=== PATIENT | male | born 1980 | race Caucasian/White ===

== ENCOUNTER 2020-06-10 07:58 | Outpatient (RCR) | payer BC, SELFPAY | END 2020-10-19 16:22 | disposition home or self-care (01) | LOC: HO.WCC 07:58 | PROVIDERS: PCP Nurse Practitioner Family; Visit Provider Surgery | DX: L02.31 Cutaneous abscess of buttock (principal) | CPT/HCPCS: 10060; 10061; 17250; 87071; 87205; 99212; 99213 ==

== ENCOUNTER → 2022-08-17 10:28 | Outpatient (BNVA) | payer BC, SELFPAY | PROVIDERS: PCP Nurse Practitioner Family; Visit Provider Urology | DX: Z13.89 Encounter for screening for other disorder (principal) ==

== ENCOUNTER → 2023-02-15 14:20 | Outpatient (BNVA) | payer BC, SELFPAY | PROVIDERS: Visit Provider Urology ==

== ENCOUNTER 2023-02-16 09:28 | Outpatient (AMB) | payer BC, SELFPAY ==
--- NOTE | 2023-02-16 09:54 | MHC.OFFVIS ---
Intake Intake Visit Reasons: 3m seman analysis Intake Note: New patient is present for Semen Analysis Antibiotic Allergy: None Blood Thinner: None Allergies No Known Allergies Allergy (Verified 08/17/22 10:53) Medication List - Last Reconciled 02/16/23 by Umesh Yu MD albuterol sulfate 90 mcg/actuation 2 puffs inhalation Q6H PRN 30 days hydrochlorothiazide 25 mg PO DAILY 90 days lisinopril 10 mg PO DAILY 90 days metformin 500 mg PO BID modafinil 200 mg PO DAILY 30 days Pregnyl (chorionic gonadotropin, human) 1,000 units IM 3XW 10 weeks NS propranolol 20 mg PO DAILY 90 days tadalafil 20 mg PO ONCE PRN 30 days testosterone cypionate (Depo-Testosterone) 100 mg (0.5 mL) subcut QWEEK 4 weeks HPI HPI Comments History of Present Illness Details Kingsley is a pleasant male. He is a patient of Dr. Riddle. 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 For 1st limited testosterone 100 mg weekly - age 37 Had additional hCG support 500 units TIW This time he would like to obtain medications through traditional distribution Normal testicular volume on exam Prescription for 100 mg testosterone provided HCG prescription provided There have been shortages of HCG and issues with supply These were discussed Erectile difficulty Response to 20 mg tadalafil on demand Prescription provided [facility] Medical History Shift work sleep disorder Social History Housing: House Patient Tobacco Use Status: Never used Tobacco e-Cigarette/Vaping Use: Never Used Second Hand Smoke Exposure: No service: No Current occupational status: employed Current occupation: [employer] Current occupational exposures/hazards: Yes Cognitive needs: No Hearing needs: No Vision needs: No Review of Systems Const Denies chills and Denies fever(s) Card Reports no additional complaints and Denies syncope Resp Denies cough GI Denies abdominal pain and Denies heartburn Reports as per HPI and Denies change in libido Neuro Denies syncope Psych Denies change in libido Endo Denies change in libido Physical Exam Const General: cooperative, healthy appearing, comfortable and no acute distress Orientation/consciousness: patient oriented x3 HEENT Face and sinus: Yes normal facial exam Mouth: moist mucous membranes Neck Neck: Yes normal visual inspection, Yes full ROM and Yes trachea midline Chest Chest palpation & inspection: normal inspection of the chest Resp Effort & Inspection: normal respiratory effort, able to speak in complete sentences and no respiratory distress GI Inspection: Yes normal to inspection Back/Spine/Pelvis Cervical Spine: normal cervical lordosis Thoracic/Lumbar Spine: thoracic and lumbar spine normal to inspection Skin General skin exam: no rashes or lesions noted Neuro General: patient oriented x3, gait normal, tone normal and moves all extremities Extrem General: Yes normal to inspection and Yes capillary refill normal Assessment & Plan Assessment & Plan (1) Hypogonadism in male: Code(s): E29.1 - Testicular hypofunction (2) Erectile dysfunction: Code(s): N52.9 - Male erectile dysfunction, unspecified Qualifiers: Erectile dysfunction type: vasculogenic (3) 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 No major barriers to patient understanding were identified. An opportunity to ask questions regarding the treatment plan was provided. All questions were answered. The patient expressed understanding and agreement with the above treatment plan. The patient is aware they should contact our office by phone for worsening of their current condition or the appearance of new urologic symptoms. Compliance is encouraged with any medications and followup testing that is ordered. It is a privilege to participate in the urologic care of your patient. If you have any questions or concerns regarding treatment for the above conditions, or other urologic issues, please do not hesitate to contact me. The office telephone contact is [phone]. This note is constructed using voice recognition software. While every effort has been made to ensure accuracy district plant superintendent errors may have been included. 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
== END 2023-02-16 10:13 | disposition home or self-care (01) ==
PROVIDERS: PCP Nurse Practitioner Family; Visit Provider Urology
DX: E29.1 Testicular hypofunction (principal); N52.9 Male erectile dysfunction, unspecified; N46.8 Other male infertility; T50.905A Adverse effect of unspecified drugs, medicaments and biological substances, initial encounter
CPT/HCPCS: 99213

== ENCOUNTER → 2023-02-16 09:28 | Outpatient (BNVA) | payer BC, SELFPAY | PROVIDERS: PCP Nurse Practitioner Family; Visit Provider Urology ==

== ENCOUNTER 2023-05-30 11:04 | Outpatient (AMB) | payer BC, SELFPAY ==
--- NOTE | 2023-05-30 11:36 | A.OFFVIS_ITS ---
Intake Intake Visit Reasons: 3M Semen Analysis (Pt will bring sample) Allergies No Known Allergies Allergy (Verified 08/17/22 10:53) Medication List - Last Reconciled 06/13/23 by Umesh Yu MD albuterol sulfate 90 mcg/actuation 2 puffs inhalation Q6H PRN 30 days hydrochlorothiazide 25 mg PO DAILY 90 days lisinopril 10 mg PO DAILY 90 days metformin 500 mg PO BID modafinil 200 mg PO DAILY 30 days Pregnyl (chorionic gonadotropin, human) 1,500 units IM 3XW 12 weeks NS propranolol 20 mg PO DAILY 90 days tadalafil 20 mg PO ONCE PRN 30 days testosterone cypionate (Depo-Testosterone) 100 mg (0.5 mL) subcut QWEEK 4 weeks HPI HPI Comments History of Present Illness Details Kingsley is a pleasant male. He is a patient of Dr. Riddle. 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 For 1st limited testosterone 100 mg weekly - age 37 Had additional hCG support 500 units TIW This time he would like to obtain medications through traditional distribution Normal testicular volume on exam Prescription for 100 mg testosterone provided HCG prescription provided There have been shortages of HCG and issues with supply These were discussed Erectile difficulty Response to 20 mg tadalafil on demand Prescription provided [facility] Medical History Shift work sleep disorder Social History Housing: House Patient Tobacco Use Status: Never used Tobacco e-Cigarette/Vaping Use: Never Used Second Hand Smoke Exposure: No service: No Current occupational status: employed Current occupation: [employer] Current occupational exposures/hazards: Yes Cognitive needs: No Hearing needs: No Vision needs: No Review of Systems Const Denies chills and Denies fever(s) Card Reports no additional complaints and Denies syncope Resp Denies cough GI Denies abdominal pain and Denies heartburn Reports as per HPI and Denies change in libido Neuro Denies syncope Psych Denies change in libido Endo Denies change in libido Physical Exam Const General: cooperative, healthy appearing, comfortable and no acute distress Orientation/consciousness: patient oriented x3 HEENT Face and sinus: Yes normal facial exam Mouth: moist mucous membranes Neck Neck: Yes normal visual inspection, Yes full ROM and Yes trachea midline Chest Chest palpation & inspection: normal inspection of the chest Resp Effort & Inspection: normal respiratory effort, able to speak in complete sentences and no respiratory distress GI Inspection: Yes normal to inspection Back/Spine/Pelvis Cervical Spine: normal cervical lordosis Thoracic/Lumbar Spine: thoracic and lumbar spine normal to inspection Skin General skin exam: no rashes or lesions noted Neuro General: patient oriented x3, gait normal, tone normal and moves all extremities Extrem General: Yes normal to inspection and Yes capillary refill normal Assessment & Plan Assessment & Plan (1) 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 No major barriers to patient understanding were identified. An opportunity to ask questions regarding the treatment plan was provided. All questions were answered. The patient expressed understanding and agreement with the above treatment plan. The patient is aware they should contact our office by phone for worsening of their current condition or the appearance of new urologic symptoms. Compliance is encouraged with any medications and followup testing that is ordered. It is a privilege to participate in the urologic care of your patient. If you have any questions or concerns regarding treatment for the above conditions, or other urologic issues, please do not hesitate to contact me. The office telephone contact is [phone]. This note is constructed using voice recognition software. While every effort has been made to ensure accuracy tooling engineering tech errors may have been included. 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
== END 2023-05-30 12:02 | disposition home or self-care (01) ==
PROVIDERS: PCP Nurse Practitioner Family; Visit Provider Urology
DX: N46.8 Other male infertility (principal); T50.905A Adverse effect of unspecified drugs, medicaments and biological substances, initial encounter; E29.1 Testicular hypofunction
CPT/HCPCS: 99214

== ENCOUNTER → 2023-05-30 11:04 | Outpatient (BNVA) | payer BC, SELFPAY | PROVIDERS: PCP Nurse Practitioner Family; Visit Provider Urology ==

== ENCOUNTER 2023-11-30 12:11 | Outpatient (AMB) | payer BC, SELFPAY ==
--- NOTE | 2023-11-30 11:13 | MHC.OFFVIS ---
Intake Visit Reasons: 6m follow up Allergies No Known Allergies Allergy (Verified 08/17/22 10:53) PFSH Medical History Shift work sleep disorder Social History Housing: House Patient Tobacco Use Status: Never used Tobacco e-Cigarette/Vaping Use: Never Used Second Hand Smoke Exposure: No service: No Current occupational status: employed Current occupation: [employer] Current occupational exposures/hazards: Yes Cognitive needs: No Hearing needs: No Vision needs: No Coding
--- NOTE | 2023-11-30 12:11 | A.OFFVIS_ITS ---
Intake Visit Reasons: 6m follow up Allergies No Known Allergies Allergy (Verified 08/17/22 10:53) HPI Comments Details: Kingsley is a pleasant male. He is a patient of Dr. Riddle. Seen for the following urologic conditions - male infertility - erectile difficulty Telemedicine Evaluation 15 min Consultation XM Radio Pablo Video Has seen Dr. Carter at [facility] At this point is continuing testosterone to the end of summer Has been on HCG 500 units t.i.w. 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 For 1st limited testosterone 100 mg weekly - age 37 Had additional hCG support 500 units TIW This time he would like to obtain medications through traditional distribution Normal testicular volume on exam Prescription for 100 mg testosterone provided HCG prescription provided There have been shortages of HCG and issues with supply These were discussed Erectile difficulty Response to 20 mg tadalafil on demand Prescription provided [facility] Medical History Shift work sleep disorder Social History Housing: House Patient Tobacco Use Status: Never used Tobacco e-Cigarette/Vaping Use: Never Used Second Hand Smoke Exposure: No service: No Current occupational status: employed Current occupation: [employer] Current occupational exposures/hazards: Yes Cognitive needs: No Hearing needs: No Vision needs: No Review of Systems Const All systems reviewed & are unremarkable except as noted in HPI and below Reports no additional complaints Resp Reports no additional complaints GI Reports no additional complaints Reports as per HPI Musc Reports no additional complaints Physical Exam Telemedicine evaluation Appropriate responses Regular breathing rate and rhythm HEENT Head: Yes normal to inspection Ears: hearing grossly normal bilaterally Eyes General: appearance normal, both eyes and all related structures Neck Neck: Yes normal visual inspection Chest Chest palpation & inspection: normal inspection of the chest Resp Effort & Inspection: normal respiratory effort and able to speak in complete sentences Telehealth Telehealth Telehealth Platform: [employer] Location of provider rendering services: practice address Location of patient: address on file Patient Identification confirmed using: Name, : Yes Telehealth method: video Patient verbally consented to treatment: Yes Patient verbally consented to billing insurance company: Yes Patient informed of any privacy concerns related to visit: Yes Minutes spent on Phone/Video with Pt.: 15 Assessment & Plan Assessment & Plan (1) 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 - Adverse effect of unspecified drugs, medicaments and biological substances, initial encounter Category: Medical (2) Erectile dysfunction: Code(s): N52.9 - Male erectile dysfunction, unspecified Category: Medical Qualifiers: Erectile dysfunction type: vasculogenic (3) Hypogonadism in male: Code(s): E29.1 - Testicular hypofunction Category: Medical Plan Six-month follow-up Patient Instructions: Imaging studies, laboratory and physical exam results were discussed and reviewed in detail. No major barriers to patient understanding were identified. An opportunity to ask questions regarding the treatment plan was provided. All questions were answered. The patient expressed understanding and agreement with the above treatment plan. The patient is aware they should contact our office by phone for worsening of their current condition or the appearance of new urologic symptoms. Compliance is encouraged with any medications and followup testing that is ordered. It is a privilege to participate in the urologic care of your patient. If you have any questions or concerns regarding treatment for the above conditions, or other urologic issues, please do not hesitate to contact me. The office tele phone contact is [phone]. This note is constructed using voice recognition software. While every effort has been made to ensure accuracy submarine advisory team watch officer errors may have been included. 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 Erectile dysfunction N52.9 Erectile dysfunction type: vasculogenic Hypogonadism in male E29.1
== END 2023-11-30 12:18 | disposition home or self-care (01) ==
LOC: HO.HUSH 12:11
PROVIDERS: PCP Nurse Practitioner Family; Visit Provider Urology
DX: N46.8 Other male infertility (principal); T50.905A Adverse effect of unspecified drugs, medicaments and biological substances, initial encounter; N52.9 Male erectile dysfunction, unspecified; E29.1 Testicular hypofunction
CPT/HCPCS: 99213

== ENCOUNTER → 2023-11-30 12:11 | Outpatient (BNVA) | payer BC, SELFPAY | PROVIDERS: PCP Nurse Practitioner Family; Visit Provider Urology ==

== ENCOUNTER 2024-06-21 10:05 | Outpatient (AMB) | payer BC, SELFPAY ==
--- NOTE | 2024-06-21 10:11 | MHC.OFFVIS ---
Intake Visit Reasons: 6m follow up Intake Note: Patient is present for 6M F/U Urology Medication:TADALALFIL.TESTOSTERONE Antibiotic Allergy:NONE Blood Thinner:NONE City Bailiff Required: No Allergies No Known Allergies Allergy (Verified 06/21/24 10:13) Medication List - Last Reconciled 06/21/24 by Umesh Yu MD albuterol sulfate 90 mcg/actuation 2 puffs inhalation Q6H PRN 30 days hydrochlorothiazide 25 mg PO DAILY 90 days lisinopril 10 mg PO DAILY 90 days metformin 500 mg PO BID modafinil 200 mg PO DAILY 30 days Pregnyl (chorionic gonadotropin, human) 1,500 units IM 3XW 12 weeks NS propranolol 20 mg PO DAILY 90 days tadalafil 20 mg PO ONCE PRN 30 days tadalafil 5 mg PO DAILY 90 days testosterone cypionate (Depo-Testosterone) 100 mg (0.5 mL) subcut QWEEK 4 weeks HPI Comments Details: Kingsley is a pleasant male. He is a patient of Dr. Riddle. 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 Carter at [facility] Erectile difficulty Response to 20 mg tadalafil on demand Prescription provided [facility] Medical History Shift work sleep disorder Social History Housing: House Patient Tobacco Use Status: Never used Tobacco e-Cigarette/Vaping Use: Never Used Second Hand Smoke Exposure: No service: No Current occupational status: employed Current occupation: [employer] Current occupational exposures/hazards: Yes Cognitive needs: No Hearing needs: No Vision needs: No Review of Systems Const Denies chills and Denies fever(s) Card Reports no additional complaints and Denies syncope Resp Denies cough GI Denies abdominal pain and Denies heartburn Reports as per HPI and Denies change in libido Neuro Denies syncope Psych Denies change in libido Endo Denies change in libido Physical Exam Const General: cooperative, healthy appearing, comfortable and no acute distress Orientation/consciousness: patient oriented x3 HEENT Face and sinus: Yes normal facial exam Mouth: moist mucous membranes Neck Neck: Yes normal visual inspection, Yes full ROM and Yes trachea midline Chest Chest palpation & inspection: normal inspection of the chest Resp Effort & Inspection: normal respiratory effort, able to speak in complete sentences and no respiratory distress GI Inspection: Yes normal to inspection Back/Spine/Pelvis Cervical Spine: normal cervical lordosis Thoracic/Lumbar Spine: thoracic and lumbar spine normal to inspection Skin General skin exam: no rashes or lesions noted Neuro General: patient oriented x3, gait normal, tone normal and moves all extremities Extrem General: Yes normal to inspection and Yes capillary refill normal Assessment & Plan Assessment & Plan (1) Hypogonadism in male: Code(s): E29.1 - Testicular hypofunction Category: Medical (2) Erectile dysfunction: Code(s): N52.9 - Male erectile dysfunction, unspecified Category: Medical Qualifiers: Erectile dysfunction type: vasculogenic (3) Bladder instability: Code(s): N32.89 - Other specified disorders of bladder Category: Medical Plan Refill medications At tadalafil daily Six-month follow-up lab work tele Orders: Orders Prostate Specific Antigen 6 Months E29.1 - Testicular hypofunction Testosterone, Total 6 Months E29.1 - Testicular hypofunction Complete Blood Count no Diff 6 Months E29.1 - Testicular hypofunction Medications: New tadalafil Wasserman payment 5 mg PO DAILY 90 days 90 tabs 1RF Bladder instability N32.89 - Other specified disorders of bladder Changed From testosterone cypionate (Depo-Testosterone) Discard excess 100 mg (0.5 mL) subcut QWEEK 4 weeks 4 mL 5RF E29.1 - Testicular hypofunction, [id number] To testosterone cypionate (Depo-Testosterone) Discard excess - may spilt dose 25 units twice a week 100 mg (0.5 mL) subcut QWEEK 4 weeks 4 mL 5RF E29.1 - Testicular hypofunction, [id number] Patient Instructions: This note is constructed using voice recognition software. While every effort has been made to ensure accuracy machine ceramic coater errors may have been included. Imaging studies, laboratory and physical exam results were discussed and reviewed in detail. No major barriers to patient understanding were identified. An opportunity to ask questions regarding the treatment plan was provided. All questions were answered. The patient expressed understanding and agreement with the above treatment plan. The patient is aware they should contact our office by phone for worsening of their current condition or the appearance of new urologic symptoms. Compliance is encouraged with any medications and followup testing that is ordered. It is a privilege to participate in the urologic care of your patient. If you have any questions or concerns regarding treatment for the above conditions, or other urologic issues, please do not hesitate to contact me. The office telephone contact is [phone]. Sincerely, Dr Umesh Yu MD, [facility] - Urology Compassionate Specialist Care for the Genitourinary System Coding Level of Care Code Est Pt Level 4 (47162) Diagnoses Hypogonadism in male E29.1 Erectile dysfunction N52.9 Erectile dysfunction type: vasculogenic Bladder instability N32.89
--- OUTSIDE RECORDS SUMMARY | 2024-06-21 10:51 | XMS_ITS | Encounter Summary ---
Author Organization [facility] Address [address] [place] [address] Care Team Providers Care Master Control Supervisor Name Role Phone Unavailable Primary Care Provider Unavailabl e Encounter Details Date Type Department Care Team (Late st Contact Info) Description 12/27/2019 Lab Requisition [facility] [address] [place] [phone] Cory Malcolm PA-C [address] [place] [phone] Encounter for laboratory testing for COVID-19 virus Social History Tobacco Use Types Packs/Day Years Used Date Smoking Tobacco: Never Assessed Sex and Gender Information Value Date Recorded Sex Assigned at Not on file Gender Identity Not on file Sexual Orientation Not on file documented as of this encounter Plan of Treatment Not on file documented as of this encounter Procedures Procedure Name Priority Date/Time Associated Diagnosis Comments SARS COV-2 RNA (COVID-19), QUAL Routine 12/27/2019 3:20 PM EDT Encounter for laboratory testing for COVID-19 virus [ICD-10-CM] documented in this encounter Results * SARS CoV-2 RNA (COVID-19), Qual (12/27/2019 3:20 PM EDT) Pathologist [facility] SARS CoV 2 RNA, Qual NOT DETECTED NOT DETECTED 12/29/2019 2:00 AM EDT [facility] Comment: A Not Detected (negative) test result for this test means that SARS-CoV-2 RNA was not present in the specimen above the limit of detection. A negative result does not rule out the possibility of COVID-19 and should not be used as the sole basis for treatment or patient management decisions. If COVID-19 is still suspected, based on exposure history together with other clinical findings, re-testing should be considered in consultation with public health authorities. Laboratory test results should always be considered in the context of clinical observations and epidemiological data in making a final diagnosis and patient management decisions. REFERENCE RANGE: ??NOT DETECTED This patient specimen was tested using an FDA EUA pooling method. Negative results from pooled testing should not be treated as definitive. ??If the patient's clinical signs and symptoms are inconsistent with a negative result or results are necessary for patient management, then the patient should be considered for individual testing. Specimens with low viral loads may not be detected in sample pools due to the decreased sensitivity of pooled testing. Please review the Fact Sheets and FDA authorized labeling available for health care providers and patients using the following websites: https://www.Roadmunk.Zoomaal/home/Covid-19/HCP/QuestLDTP/ fact-sheet https://www.[employer]/home/Covid-19/Patients/QuestLDTP/ fact-sheet.html This test has been authorized by the FDA under an Emergency Use Authorization (EUA) for use by authorized laboratories. Due to the current public health emergency, [facility] is receiving a high volume of samples from a wide variety of swabs and media for COVID-19 testing. In order to serve patients during this public health crisis, samples from appropriate clinical sources are being tested. Negative test results derived from specimens received in non-commercially manufactured viral collection and transport media, or in media and sample collection kits not yet authorized by FDA for COVID-19 testing should be cautiously evaluated and the patient potentially subjected to extra precautions such as additional clinical monitoring, including collection of an additional specimen. Methodology: ??Nucleic Acid Amplification Test (NAAT) includes PCR or TMA ?? Additional information about COVID-19 can be found at the [facility] website: www.[employer].Zoomaal/Covid19. Microbiology Nasopharyngeal swab / Unknown 12/27/2019 3:20 PM EDT 12/27/2019 3:20 PM EDT Narrative [facility] - 12/29/2019 2:00 AM EDT Performing Organization Information: ?Site ID: [id number] ?Name: [employer] ?Address: [address] [place] [address],[place] [address] ?Director: MIGUEL VANCE MD [facility]formed at [facility] License number [id number] Cory Malcolm PA-C MICROBIOLOGY - [facility] ORDERABLES Performing Organization Address City/State/[facility] Co de Phone Number [facility] documented in this encounter Visit Diagnoses Diagnosis Encounter for laboratory testing for COVID-19 virus documented in this encounter
--- OUTSIDE RECORDS SUMMARY | 2024-06-21 10:51 | XMS_ITS | Clinical Summary ---
Author Organization [facility] Address [address] [place] [phone] Phone Care Team Providers Care Mail Handler Equipment Operator Name Role Phone Cory Renteria Primary Care Provider Medications albuterol HFA (PROAIR HFA ; PROVENTIL HFA ; VENTOLIN HFA) 90 mcg/actuation inhaler Inhale 2 puffs by mouth every 6 hours as needed. Active chorionic gonadotropin (PREGNYL) 10,000 unit injection 2,000 Units. Active lisinopriL (PRINIVIL,ZESTR IL) 10 mg tablet Take 1 tablet (10 mg total) by mouth 1 (one) time each day. Active metFORMIN XR (GLUCOPHAGE-XR) 500 mg 24 hr tablet Take 1 tablet (500 mg total) by mouth 2 (two) times a day. Active methylPREDNISol one (MEDROL) 4 mg tablet follow package directions Active needle, disp, 25 gauge 25 gauge x 5/8 needle Use to inject pregnyl Active syringe with needle 3 mL 18 x 1 12 syringe Use to draw up pregnyl Active testosterone cypionate (DEPO-TESTOTERO NE) 200 mg/mL injection INJECT 0.5 ML SUBCUTANEOUSLY EVERY WEEK. DISCARD EXCESS Active modafiniL (PROVIGIL) 200 mg tabletIndicatio ns:Shift work sleep disorder Take 1 tablet (200 mg total) by mouth 1 (one) time each day. Max Daily Amount: 200 mg 30 tablet Active propranoloL (INDERAL) 20 mg tabletIndicatio ns:Essential hypertension Take 1 tablet (20 mg total) by mouth 1 (one) time each day. 90 tablet 024 Active hydroCHLOROthia zide (HYDRODIURIL) 25 mg tabletIndicatio ns:Essential hypertension TAKE 1 TABLET (25 MG TOTAL) BY MOUTH DAILY. 90 tablet 024 Active Ozempic 2 mg/dose (8 mg/3 mL) injection penIndications: Non-insulin dependent type 2 diabetes mellitus (CMS/HCC) INJECT 2 MG SUBCUTANEOUSLY EVERY 7 DAYS 3 mL 025 Active Ozempic 2 mg/dose (8 mg/3 mL) injection penIndications: Non-insulin dependent type 2 diabetes mellitus (CMS/HCC) Inject 2 mg under the skin every 7 (seven) days. 3 mL 024 2024 Discontinued Encounters Date Type Department Care Team Description 05/24/2024 Telephone Internal Medicine [address] [place] [address] Chey Henriquez LPN Med Refill 05/02/2024 4:00 PM EST Telemedicine Internal Medicine [facility] [address] [facility] [address] [place] [address] Cory Renteria, DO Shift work sleep disorder (Primary Dx); Essential hypertension; Non-insulin dependent type 2 diabetes mellitus (CMS/HCC) from Last 3 Months Immunizations Name Administration Dates Next Due Influenza Quadrivalent, 0.5m l, preservative free (Fluarix; FluLaval; Fluzone) ages 6mo and older (Afluria) 3yo and older 03/15/2017 Td Tetanus diptheria (Tdvax) 7yo and older 01/26 Surgical History Surgery Date Site/Laterality Comments TENDON REPAIR Distal PROCEDURE:TENDON REPAIR OTHER SURGICAL HISTORY PROCEDURE:bone spur Medical History Medical History Date Comments Asthma DX:Asthma Diabetes (CMS/HCC) DX:Diabetes ( HCC) Hypertension DX:Hypertension Obesity DX:Obesity Vision problem DX:Vision proble m Family History Medical History Relation Name Comments Diabetes Father Hypertension Father Kidney disease Father Cancer Maternal Grandfather Diabetes Maternal Grandfather Hypertension Maternal Grandfather Multiple sclerosis Maternal Grandmother Diabetes Paternal Grandfather Hypertension Paternal Grandfather Alzheimer's disease Paternal Grandmother Relation Name Status Comments Father Maternal Grandfather Maternal Grandmother Mother Alive Paternal Grandfather Paternal Grandmother Sister Alive Social History Tobacco Use Types Packs/Day Years Used Date Smoking Tobacco: Never Smokeless Tobacco: Never Alcohol Use Standard Drinks/Week Comments Yes 0 (1 standard drink = 0.6 oz pur e alcohol) Housing Instability Answer Date Recorde d Are you worried that in the next 2 months you may not have stable housing? No 05/02/2024 Food Access & Nutrition Answer Date Rec orded Do you have access to a vari ety of food including fruits and vegetables? Yes 05/02/2024 Financial Risk Answer Date Recorded How hard is it for you to pa y for the very basics like food, housing, medical care, and air conditioning / heating? Patient declined 05/02/2024 Food Risk Answer Date Recorded Within the past 12 months we worried whether our food would run out before we got money to buy more. Never true 05/02/2024 Within the past 12 months th e food we bought just didn't last and we didn't have money to get more. Never true 05/02/2024 Living Situation Answer Date Recorded What is your living situation? 1 07/03/2023 Sex and Gender Information Value Date Recorded Sex Assigned at Not on file Legal Sex Male 4:43 PM EDT Gender Identity Not on file Sexual Orientation Not on file Obstetrics History Last Filed Vital Signs Vital Sign Reading Time Taken Comments Blood Pressure 132/71 12/20/2023 9:21 AM EDT Sit ting Left arm Pulse 97 12/20/2023 9:21 AM EDT Temperature - - Respiratory Rate - - Oxygen Saturation - - Inhaled Oxygen Concentration - - Weight 125 kg (276 lb) 12/20/2023 9:21 AM EDT Height 170.2 cm (5' 7 ) 12/20/2023 9:21 AM EDT Body Mass Index 43.23 12/20/2023 9:21 AM EDT Plan of Treatment Upcoming Encounters Date Type Department Care Team (Late st Contact Info) Description 06/26/2024 1:00 PM EST Office Visit Internal Medicine - [place] [address] [place] [address] Cory Renteria, DO [address] [facility] [address] [place] [phone] Health Maintenance Due Date Last Done Comments Diabetes: Annual Foot Exam 1992 Diabetes: Annual Retina Eye Exam 1992 Hepatitis B Vaccines (1 of 3 - 19+ 3-dose series) 2001 Pneumococcal Vaccine: Pediatrics (0 to 5 Years) and At-Risk Patients (6 to 64 Years) (1 of 2 - PCV) 2001 HIV Screening 12/08/2023 Hepatitis C Screening 12/08/2023 COVID-19 Vaccine (2023-2 5 season) 2024 Influenza Vaccine (#1) 2024 03/15/2017 Diabetes: Blood Sugar Contro l Test (HGBA1C) 12/17/2024 06/19/2024, 11/15/2023, 11/14/2023 Depression Screening 05/02/2025 05/02/2024 Social Influencers of Health Screening 05/02/2025 05/02/2024 Diabetes: Annual Urine Albumin-Creatinine Ratio (uACR) 06/19/2025 06/19/2024, 11/14/2023 Diabetes: Annual GFR (Glomerular Filtration Rate) 06/19/2025 06/19/2024, 11/14/2023, 11/14/2023 Hypertension/CHF/CAD Annual BMP Blood Test 06/19/2025 06/19/2024, 11/14/2023, 11/14/2023 DTaP,Tdap,and Td Vaccines (2 - Td or Tdap) 01/26/2027 01/26/2017 Cholesterol Screening (Lipid Panel) 06/19/2029 06/19/2024, 11/14/2023, 11/14/2023 HIB Vaccines Aged Out No longer eligi ble based on patient's age to complete this topic HPV Vaccines Aged Out No longer eligi ble based on patient's age to complete this topic Hepatitis A Vaccines Aged Out No long er eligible based on patient's age to complete this topic IPV Vaccines Aged Out No longer eligi ble based on patient's age to complete this topic MMR Vaccines Aged Out No longer eligi ble based on patient's age to complete this topic Meningococcal ACWY Vaccine Aged Out N o longer eligible based on patient's age to complete this topic Meningococcal B Vacine Aged Out No lo nger eligible based on patient's age to complete this topic RSV Immunization Patients Under 20 months Aged Out No longer eligible b ased on patient's age to complete this topic Varicella Vaccines Aged Out No longer eligible based on patient's age to complete this topic Procedures Procedure Name Priority Date/Time Associated Diagnosis Comments BASIC METABOLIC PANEL Routine 06/19/2024 8:29 AM EST Non-insulin dependent type 2 diabetes mellitus ([facility]/HCC) LIPID PANEL Routine 06/19/2024 8:29 AM EST Non-insulin dependent type 2 diabetes mellitus ([facility]/HCC) HEMOGLOBIN A1C Routine 06/19/2024 8:29 AM EST Non-insulin dependent type 2 diabetes mellitus ([facility]) MICROALBUMIN CREATININE URINE RATIO Routine 06/19/2024 8:29 AM EST Non-insulin dependent type 2 diabetes mellitus ([facility]/HCC) from Last 3 Months Results * Microalbumin creatinine urine ratio (06/19/2024 8:29 AM EST) Creatinine, Urine 158.5 mg/dL LAB CHEMISTRY METHOD 06/19/2024 12:14 PM [facility] Comment:No established refer ence range. Microalb, Ur <7.0 mg/L LAB CHEMISTRY METHOD 06/19/2024 12:14 PM EST [facility] Comment:No established refer ence range. Microalb/Creat Ratio <4 <30 mg/g creat LAB CHEMISTRY METHOD 06/19/2024 12:14 PM EST [facility] Comment:Concentrations outsi de detection limits, unable to calculate ratio. Urine Urine specimen obtained by clean catch procedure / Unknown Non-blood Collection / Unknown 06/19/2024 8:29 AM EST 06/19/2024 8:29 AM EST Cory Renteria DO LAB URINE ORDERABLES Fi nal Result [facility] [address] [place] [address], [place] [phone] * (ABNORMAL) Hemoglobin A1c (06/19/2024 8:29 AM EST) Hemoglobin A1C 6.7(H) <5.7 % LAB CHEMISTRY METHOD 06/19/2024 10:48 AM EST [facility] Mean Bld Glu Estim. 146 mg/dL LAB CHEMISTRY METHOD 06/19/2024 10:48 AM EST [facility] Blood Venous blood specimen / Unknown Venipuncture / Unknown 06/19/2024 8:29 AM EST 06/19/2024 8:29 AM EST Narrative [facility] - 06/19/2024 10:48 AM EST ADA Guidelines: ?? Increased risk Diabetes Mellitus A1C 5.7 - 6.4% and Fasting Blood Glucose 100 - 125 mg/dl Diabetes Mellitus: A1C >6.5% and Fasting Blood Glucose >125 mg/dl Cory Renteria DO LAB BLOOD ORDERABLES Fi nal Result [facility] [address] [place] [address], [place] [phone] * (ABNORMAL) Lipid panel (06/19/2024 8:29 AM EST) Cholesterol 183 0 - 200 mg/dL LAB CHEMISTRY METHOD 06/19/2024 10:51 AM EST [facility] Triglycerides 233(H) <150 mg/dL LAB CHEMISTRY METHOD 06/19/2024 10:51 AM EST [facility] HDL 42 32 - 70 mg/dL LAB CHEMISTRY METHOD 06/19/2024 10:51 AM EST [facility] LDL Calculated 94 50 - 130 mg/dL LAB CHEMISTRY METHOD 06/19/2024 10:51 AM [facility] VLDL Cholesterol Marquez 46.6 mg/dL LAB CHEMISTRY METHOD 06/19/2024 10:51 AM [facility] Comment:No established refer ence range. Blood Venous blood specimen / Unknown Venipuncture / Unknown 06/19/2024 8:29 AM EST 06/19/2024 8:29 AM EST Cory Renteria DO LAB BLOOD ORDERABLES Fi nal Result [facility] [address] [place] [address], * (ABNORMAL) Basic metabolic panel (06/19/2024 8:29 AM EST) Sodium 138 135 - 145 mmol/L LAB CHEMISTRY METHOD 06/19/2024 10:51 AM [facility] Potassium 4.0 3.5 - 5.1 mmol/L LAB CHEMISTRY METHOD 06/19/2024 10:51 AM [facility] Chloride 98 98 - 107 mmol/L LAB CHEMISTRY METHOD 06/19/2024 10:51 AM [facility] CO2 31 24 - 32 mmol/L LAB CHEMISTRY METHOD 06/19/2024 10:51 AM [facility] Anion Gap 9 5 - 14 LAB CHEMISTRY METHOD 06/19/2024 10:51 AM [facility] Glucose 138(H) 70 - 99 mg/dL LAB CHEMISTRY METHOD 06/19/2024 10:51 AM [facility] BUN 17 9 - 20 mg/dL LAB CHEMISTRY METHOD 06/19/2024 10:51 AM [facility] Creatinine 1.20 0.70 - 1.30 mg/dL LAB CHEMISTRY METHOD 06/19/2024 10:51 AM [facility] eGFR 78 >=60 mL/min/1. 73m2 LAB CHEMISTRY METHOD 06/19/2024 10:51 AM EST [facility] Comment:Calculation based on the??Chronic Kidney Disease Epidemiology Collaboration (CKD-EPI) equation refit??without adjustment for race. BUN/Creatinine Ratio 14.2 12.0 - 20.0 LAB CHEMISTRY METHOD 06/19/2024 10:51 AM EST [facility] Calcium 10.1 8.4 - 10.2 mg/dL LAB CHEMISTRY METHOD 06/19/2024 10:51 AM EST [facility] Blood Venous blood specimen / Unknown Venipuncture / Unknown 06/19/2024 8:29 AM EST 06/19/2024 8:29 AM EST Cory Renteria DO LAB BLOOD ORDERABLES Fi nal Result [facility] [address] [place] [address], from Last 3 Months Insurance [facility] Care Teams Mail Handler Equipment Operator Relationship Specialty Start Date End Date Cory Renteria DO [address] [facility] [address] [facility] [place] [phone] PCP - General 11/01/23
--- OUTSIDE RECORDS SUMMARY | 2024-06-21 10:51 | XMS_ITS | Clinical Summary ---
Author Organization [facility] Address [address] [place] [address] Care Team Providers Care Certified Nurse Midwife Name Role Phone Myra ROCA DO, Edward J Primary Care Provider Unavailable Allergies No known active allergies Medications Medication Sig Dispensed Refills Start Date End Date Status chorionic gonadotropin (PREGNYL) 73235 units injection 2,000 Units. 0 09/06/2023 Active lisinopril (PRINIVIL,ZESTRIL) tablet 10 mg 0 10/25/2023 Active metFORMIN (GLUCOPHAGE-XR) ER 24 hr tablet 500 mg TAKE 1 TABLET BY MOUTH TWICE A DAY WITH FOOD 0 09/30/2023 Active NEEDLE, DISP, 25 G (MONOJECT HYPO 25GX5/8 ) 25G X 5/8 MISC Use to inject pregnyl 0 09/06/2023 Active SYRINGE-NEEDLE, DISP, 3 ML (B-D 3CC LUER-TERESO SYR 74OQ2-3/2) 18G X 1-1/2 3 ML MISC Use to draw up pregnyl 0 09/06/2023 Active testosterone cypionate (DEPO-TESTOSTERONE CYPIONATE) injection 200 mg/mL INJECT 0.5 ML SUBCUTANEOUSLY EVERY WEEK FOR 4 WEEKS DISCARD EXCESS 0 09/06/2023 Active modafinil (PROVIGIL) 200 MG tablet Take 1 tablet (200 mg total) by mouth daily. 0 Active propranolol (INDERAL) 20 MG tablet Take 1 tablet (20 mg total) by mouth daily. 0 Active albuterol 108 (90 Base) MCG/ACT inhaler Inhale 2 puffs into the lungs every 6 (six) hours as needed for wheezing. 0 Active semaglutide, 2 MG/DOSE, (Ozempic, 2 MG/DOSE,) 8 MG/3ML SOPN injectionIndicatio ns:Diabetes mellitus type 2, noninsulin dependent (HCC) Inject 0.75 mL (2 mg total) under the skin once a week. 3 mL 2 01/24/2024 Active hydroCHLOROthiazid e (HYDRODIURIL) tablet 25 mg Take 1 tablet (25 mg total) by mouth daily. 90 tablet 0 02/05/2024 Active methylPREDNISolone (Medrol) 4 MG tabletIndications: Exacerbation of asthma, unspecified asthma severity, unspecified whether persistent follow package directions 21 tablet 0 02/13/2024 Active Immunizations Name Administration Dates Next Due Influenza Quad (Fluarix/Fluz one/FluLaval) 0.5mL (SD-IIV4) 03/15/2017 Td (Adult), Unspecified formulation 01/26/2017 Family History Medical History Relation Name Comments [...] drink = 0.6 oz pur e alcohol) social Sex and Gender Information Value Date Recorded Sex Assigned at Male 08/17/2023 3:20 PM EDT Gender Identity Not on file Sexual Orientation Not on file Job Start Date Occupation Industry Not on file Not on file Not on file Last Filed Vital Signs Vital Sign Reading Time Taken Comments Blood Pressure 132/71 12/20/2023 9:21 AM EDT Pulse 97 12/20/2023 9:21 AM EDT Temperature 36.3 ??C (97.3 ??F) 12/20/2023 9:21 AM ED T Respiratory Rate - - Oxygen Saturation 95% 12/20/2023 9:21 AM EDT Inhaled Oxygen Concentration - - Weight 125.2 kg (276 lb) 12/20/2023 9:21 AM EDT Height 170.2 cm (5' 7 ) 12/20/2023 9:21 AM EDT Body Mass Index 43.23 12/20/2023 9:21 AM EDT Plan of Treatment Health Maintenance Due Date Last Done Comments Hepatitis B Vaccines (1 of 3 - 3-dose series) 1982 Hepatitis C Screening 1982 COVID-19 Vaccine (#1) 02/15/1983 Pneumococcal Vaccine (1 of 2 - PCV) 1988 Depression Screening 1994 BMI Counseling 2000 Diabetes: Eye Exam (No Retinopathy) 2000 Diabetes: Foot Exam 2000 DTap / Tdap / Td (1 - Tdap) 01/27/2017 01/26/2017 Influenza Vaccine (#1) 2024 03/15/2017 Hemoglobin A1C Due 05/16/2024 11/14/2023 Diabetes: Microalbumin Test 11/13/2024 11/14/2023 Preventative Health Evaluation 12/19/2024 12/20/2023 RSV Ped < 20 months Aged Out No longe r eligible based on patient's age to complete this topic Care Teams Certified Nurse Midwife Relationship Specialty Start Date End Date Cory Renteria IV, DO PCP - General Internal Medicine 11/01/23
--- OUTSIDE RECORDS SUMMARY | 2024-06-21 10:51 | XMS_ITS | Encounter Summary ---
Author Organization [facility] Address [address] [place] [address] Care Team Providers Care Sugar Drier Name Role Phone Unavailable Primary Care Provider Unavailabl e Encounter Details Date Type Department Care Team (Late st Contact Info) Description 04/14/2020 Lab Requisition [facility] [address] [place] [phone] Cory Malcolm PA-C [address] [place] [phone] Encounter for laboratory testing for COVID-19 virus [...] Comments SARS COV-2 RNA (COVID-19), QUAL Routine 04/14/2020 7:50 AM EST Encounter for laboratory testing for COVID-19 virus [ICD-10-CM] documented in this encounter Results * SARS CoV-2 RNA (COVID-19), Qual (04/14/2020 7:50 AM EST) Pathologist [facility] SARS CoV 2 RNA, Qual NOT DETECTED NOT DETECTED 04/16/2020 7:00 PM EST [facility] Comment: A Not Detected (negative) test result [...] providers and patients using the following websites: https://www.Maintenance Assistant.[employer]Works/home/Covid-19/HCP/QuestLDTP/ fact-sheet https://www.Cortexa/home/Covid-19/Patients/QuestLDTP/ fact-sheet.html This test has been authorized by the FDA under an Emergency Use Authorization (EUA) for use by authorized laboratories. Due to the current public health emergency, [facility] is receiving a high volume of samples [...] Methodology: ??Nucleic Acid Amplification Test (NAAT) includes RT-PCR or TMA ?? Additional information about COVID-19 can be found at the [facility] website: www.[employer].TraceWorks/Covid19. Microbiology Nasopharyngeal swab / Unknown 04/14/2020 7:50 AM EST 04/14/2020 7:50 AM EST [facility] - 04/16/2020 7:00 PM EST Performing Organization Information: ?Site ID: [id number] ?Name: [employer] ?Address: [address] [place] [address],[place] [address] ?Director: MIGUEL VANCE MD [facility] at [facility] License number [id number] Cory Malcolm PA-C MICROBIOLOGY - [facility] ORDERABLES Performing Organization Address City/State/[facility] Co de Phone Number [facility] documented in this encounter Visit Diagnoses Diagnosis Encounter for laboratory testing for COVID-19 virus documented in this encounter
--- OUTSIDE RECORDS SUMMARY | 2024-06-21 10:51 | XMS_ITS | Encounter Summary ---
Author Organization [facility] Address [address] [place] [address] Care Team Providers Care Nurse Instructor Name Role Phone Unavailable Primary Care Provider Unavailabl e Encounter Details Date Type Department Care Team (Late st Contact Info) Description 01/10/2020 Lab Requisition [facility] [address] [place] [address] [phone] Cory Malcolm PA-C [address] [place] [phone] Encounter for laboratory testing for COVID-19 virus [...] Comments SARS COV-2 RNA (COVID-19), QUAL Routine 01/10/2020 12:59 PM EDT Encounter for laboratory testing for COVID-19 virus [ICD-10-CM] documented in this encounter Results * SARS CoV-2 RNA (COVID-19), Qual (01/10/2020 12:59 PM EDT) Pathologist [facility] [place] SARS CoV 2 RNA, Qual NOT DETECTED NOT DETECTED 01/12/2020 3:00 AM EDT [facility] Comment: A Not Detected (negative) test [...] providers and patients using the following websites: https://www.Eco-Vacay.[employer]home/Covid-19/HCP/QuestLDTP/ fact-sheet https://www.BitWine/home/Covid-19/Patients/QuestLDTP/ fact-sheet.html This test has been authorized by the FDA under an Emergency Use Authorization (EUA) for use by authorized laboratories. Due to the current public health emergency, [facility] is receiving a high volume of samples [...] about COVID-19 can be found at the [facility] website: www.rimidi.[employer]Covid19. Microbiology Nasopharyngeal swab / Unknown 01/10/2020 12:59 PM EDT 01/10/2020 1:00 PM EDT Narrative [facility] - 01/12/2020 3:00 AM EDT Performing Organization Information: ?Site ID: [id number] ?Name: [facility] ?Address: [address] [place] [address],[place] [address] ?Director: MIGUEL VANCE MD [facility] License number [id number] Cory Malcolm PA-C MICROBIOLOGY - [facility] ORDERABLES Performing Organization Address City/State/[facility] Co de Phone Number [facility] documented in this encounter Visit Diagnoses Diagnosis Encounter for laboratory testing for COVID-19 virus documented in this encounter
--- OUTSIDE RECORDS SUMMARY | 2024-06-21 10:51 | XMS_ITS | Clinical Summary ---
Author Organization [facility] Address [address] [place] [address] Care Team Providers Care Actuarial Consultant Name Role Phone Unavailable Primary Care Provider Unavailabl e Social History Tobacco Use Types Packs/Day Years Used Date Smoking Tobacco: Never Assessed Sex and Gender Information Value Date Recorded Sex Assigned at Not on file Gender Identity Not on file Sexual Orientation Not on file Plan of Treatment Health Maintenance Due Date Last Done Comments Hepatitis C Virus Screening 1982 HIV Screening 08/17/1995 DTaP/Tdap/Td Vaccines (1 - Tdap) 2001 Hepatitis B Vaccines (1 of 3 - 19+ 3-dose series) 2001 COVID-19 Vaccine (2023-2 5 season) 2024 HPV Vaccines Aged Out No longer eligi ble based on patient's age to complete this topic Pneumococcal Vaccine: Pediat ida (0-5 Years) and At-Risk Patients (6 to 49 Years) Aged Out No longer eligible b ased on patient's age to complete this topic
--- OUTSIDE RECORDS SUMMARY | 2024-06-21 10:51 | XMS_ITS ---
Author Name [facility] Organization Unknown Results Test Name/Text Value Interpretation Date Range Source Creat Ur-mCnc 158.5mg/dL Normal [facility] _[facility] Microalbumin/Creat Ur 4mg/gcreat Normal [id number] - 30 [facility] Microalbumin Ur-mCnc 7mg/L Normal [facility] HDLc SerPl-mCnc 42mg/dL Normal 32 - 70 C [facility] Trigl SerPl-mCnc 233mg/dL Above high normal [id number] - 150 [facility] Cholest SerPl-mCnc 183mg/dL Normal 0 - 200 [facility] VLDLc SerPl Calc-mCnc 46.6mg/dL Normal [facility] LDLc SerPl Calc-mCnc 94mg/dL Normal 50 - 1 30 [facility] Glucose SerPl-mCnc 138mg/dL Above high normal 70 - 99 [facility] eGFRcr SerPlBld CKD-EPI 2020 78mL/min/1.7 3m2 Normal - [facility] Creat SerPl-mCnc 1.2mg/dL Normal 0.7 - 1.3 [facility] Calcium SerPl-mCnc 10.1mg/dL Normal 8.4 - 10 .2 [facility] CO2 SerPl-sCnc 31mmol/L Normal 24 - 32 CT [facility] Sodium SerPl-sCnc 138mmol/L Normal 135 - 145 [facility] BUN SerPl-mCnc 17mg/dL Normal 9 - 20 [facility] BUN/Creat SerPl 14.2 Normal 12 - 20 C [facility] Anion Gap SerPl-sCnc 9 Normal 5 - 14 [facility] Chloride SerPl-sCnc 98mmol/L Normal 98 - 10 7 [facility] Potassium SerPl-sCnc 4mmol/L Normal 3.5 - 5.1 [facility] Est. average glucose Bld gHb Est-mCnc 146mg/dL Normal [facility] HbA1c MFr Bld 6.7% Above high normal - 5.7 [facility] History of Medication Use Medication Directions Dispensed Refills Start Date End Date [facility] metFORMIN XR (GLUCOPHAGE-XR) 500 mg 24 hr tablet Take 1 tablet (500 mg total) by mouth 2 (two) times a day. active NEEDLE, DISP, 25 G (MONOJECT HYPO 25GX5/8 ) 25G X 5/8 MISC Use to inject pregnyl 07/31/2019 active semaglutide, 2 MG/DOSE, (Ozempic, 2 MG/DOSE,) 8 MG/3ML SOPN injection Inject 0.75 mL (2 mg total) under the skin once a week. 01/24/2024 active albuterol HFA (PROAIR HFA ; PROVENTIL HFA ; VENTOLIN HFA) 90 mcg/actuation inhaler Inhale 2 puffs by mouth every 6 hours as needed. active lisinopril (PRINIVIL,ZESTRIL) tablet 10 mg 10/25/2023 active metFORMIN (GLUCOPHAGE-XR) ER 24 hr tablet 500 mg TAKE 1 TABLET BY MOUTH TWICE A DAY WITH FOOD 09/30/2023 active Ozempic 2 mg/dose (8 mg/3 mL) injection pen Inject 2 mg under the skin every 7 (seven) days. 05/02/2024 active propranolol (INDERAL) 20 MG tablet Take 1 tablet (20 mg total) by mouth daily. active Semaglutide, 1 MG/DOSE, (Ozempic, 1 MG/DOSE,) 2 MG/1.5ML SOPN Inject 1 mg under the skin once a week. 12/20/2023 active NEEDLE, DISP, 25 G (MONOJECT HYPO 25GX5/8 ) 25G X 5/8 MISC Use to inject pregnyl 07/31/2019 active needle, disp, 25 gauge 25 gauge x 5/8 needle Use to inject pregnyl 09/06/2023 active modafinil (PROVIGIL) 200 MG tablet Take 1 tablet (200 mg total) by mouth daily. 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
--- OUTSIDE RECORDS SUMMARY | 2024-06-21 10:51 | XMS_ITS | Encounter Summary ---
Author Organization [facility] Address [address] [place] [address] Care Team Providers Care Network Firewall Engineer Name Role Phone Unavailable Primary Care Provider Unavailabl e Encounter Details Date Type Department Care Team (Late st Contact Info) Description 02/14/[address] [facility] [address] [place] [address] [phone] Cory Malcolm PA-C [address] [place] [phone] Encounter for laboratory testing for COVID-19 virus [...] Comments SARS COV-2 RNA (COVID-19), QUAL Routine 02/14/2020 1:27 PM EDT Encounter for laboratory testing for COVID-19 virus [ICD-10-CM] documented in this encounter Results * SARS CoV-2 RNA (COVID-19), Qual (02/14/2020 1:27 PM EDT) Pathologist [facility] [place] SARS CoV 2 RNA, Qual NOT DETECTED NOT DETECTED 02/16/2020 1:00 AM EDT [facility] Comment: A Not Detected (negative) test [...] providers and patients using the following websites: https://www.Ravenna Solutions.[employer]/home/Covid-19/HCP/QuestLDTP/ fact-sheet https://www.Snowshoefood/home/Covid-19/Patients/QuestLDTP/ fact-sheet.html This test has been authorized by the FDA under an Emergency Use Authorization (EUA) for use by authorized laboratories. Due to the current public health emergency, [facility] is receiving a high volume of samples [...] about COVID-19 can be found at the [facility] website: www.Dynamo Media.[employer]/Covid19. Microbiology Nasopharyngeal swab / Unknown 02/14/2020 1:27 PM EDT 02/14/2020 1:27 PM EDT Jessica MEJÍA [facility] - 02/16/2020 1:00 AM EDT Performing Organization Information: ?Site ID: [id number] ?Name: [employer] ?Address: [address] [place] [address],[place] [address] ?Director: MIGUEL VANCE MD [facility] number [id number] Cory Malcolm PA-C MICROBIOLOGY - [facility] ORDERABLES Performing Organization Address City/State/[place] Co de Phone Number [facility] documented in this encounter Visit Diagnoses Diagnosis Encounter for laboratory testing for COVID-19 virus documented in this encounter
--- OUTSIDE RECORDS SUMMARY | 2024-06-21 10:51 | XMS_ITS | Encounter Summary ---
Author Organization [facility] Address [address] [place] [address] Care Team Providers Care Digester Cook Name Role Phone Unavailable Primary Care Provider Unavailabl e Encounter Details Date Type Department Care Team (Late st Contact Info) Description 03/27/2020 Lab Requisition [facility] [address] [place] [address] [phone] Cory Malcolm PA-C [address] [place] [phone] Encounter for laboratory testing for COVID-19 virus [...] Comments SARS COV-2 RNA (COVID-19), QUAL Routine 03/27/2020 3:15 PM EST Encounter for laboratory testing for COVID-19 virus [ICD-10-CM] documented in this encounter Results * SARS CoV-2 RNA (COVID-19), Qual (03/27/2020 3:15 PM EST) Pathologist [facility] SARS CoV 2 RNA, Qual NOT DETECTED NOT DETECTED 03/30/2020 9:00 PM EST [facility] Comment: A Not Detected (negative) [...] providers and patients using the following websites: https://www.[employer]agues.[employer]/home/Covid-19/HCP/QuestLDTP/ fact-sheet https://www.H[employer]From[place].com/home/Covid-19/Patients/QuestLDTP/ fact-sheet.html This test has been authorized by the FDA under an Emergency Use Authorization (EUA) for use by authorized laboratories. Due to the current public health emergency, [facility] is receiving a high volume of samples [...] about COVID-19 can be found at the [facility] website: www.Adyen.[employer]/Covid19. Microbiology Nasopharyngeal swab / Unknown 03/27/2020 3:15 PM EST 03/27/2020 3:15 PM EST [facility] - 03/30/2020 9:00 PM EST Performing Organization Information: ?Site ID: [id number] ?Name: [employer] ?Address: [address] [place] [address],[place] [address] ?Director: MIGUEL VANCE MD [facility] at [facility] License number [id number] Cory Malcolm PA-C MICROBIOLOGY - [facility] ORDERABLES Performing Organization Address City/State/[facility] Co de Phone Number [facility] documented in this encounter Visit Diagnoses Diagnosis Encounter for laboratory testing for COVID-19 virus documented in this encounter
--- OUTSIDE RECORDS SUMMARY | 2024-06-21 10:51 | XMS_ITS | Encounter Summary ---
Author Organization [facility] Address [address] [place] [address] Care Team Providers Care Placement Secretary Name Role Phone MyraCory estrada Primary Care Provider Reason for Visit * Reason Onset Date Comments Med Refill 05/24/2024 Encounter Details Date Type Department Care Team (Late st Contact Info) Description 05/24/2024 Telephone Internal Medicine - [address] [place] [address] Chey Henriquez LPN Med Refill Social History Tobacco Use Types Packs/Day Years [...] on file documented as of this encounter Progress Notes * Chey Henriquez LPN - 05/24/2024 11:29 AM EST Due to the office receiving the notice of approval. S/W pharmacist Ritchie, which verified patient p/u Modafinil refill on 05/15/24. documented in this encounter Plan of Treatment Upcoming Encounters Date Type Department Care Team (Late st Contact Info) Description 06/26/2024 1:00 PM EST Office Visit Internal Medicine - [place] [address] [place] [address] Cory Renteria DO [address] [facility] [phone] documented as of this encounter Visit Diagnoses Not on filedocumented in this encounter Additional Health Concerns Assessment Noted Time PHQ-9 Depression Total Score: 0 05/02/20 24 3:52 PM EST documented as of this encounter Care Teams Placement Secretary Relationship Specialty Start Date End Date Cory Renteria DO [address] [facility] [place] [phone] PCP - General 11/01/23 documented as of this encounter
--- OUTSIDE RECORDS SUMMARY | 2024-06-21 10:52 | XMS_ITS | Data Portability ---
Author Organization [facility], Main Office Address [address] [facility] [address] [place] [id number] Care Team Providers Care Partnership Development Manager Name Role Phone KAYY CHAPA Primary Care Provider ORLANDO FALCON Urologist Assessment Encounter Date Assessment Date Assessment LastModified by Organization Details LastModified Time 03/13/2023 03/13/2023 This service was provided using telemedicine. Patient consented to video & audio visit Patient was located in the [facility]. Provider was located in the office. No other persons participated in the telemedicine visit except for the patient unless otherwise indicated here. {{}} Total time of visit was 40 minutes. [email or web address] Not available 03/13/2023 10:12:38 Plan of Treatment Reminders Order Date Submit Date Provider Last Modified By Organization Details Last Modified Time Details Appointments None recor ded. Lab lipid panel , serum 2022 023 [email or web address] [facility], [address], [address], [place], [address], 3 10:39:39 BMP, serum or plasm a 2022 023 MILADIS [facility], [address], [address], [place], [address], 3 10:18:54 HbA1c (hemo globi n A1c), blood 2022 023 MILADIS [facility], [address], [address], [place], [address], 10:19:24 vitam in D, 25-hy droxy , total , serum 2022 023 MILADIS [facility], [address], [address], [place], [address], 3 22:55:36 calci um, ioniz ed + ph, blood gas (OBS) 2022 023 MILADIS [facility], [address], [address], [place], [address], 22:47:59 PTH (para thyro id hormo ne), intac t, serum or plasm a 2022 023 MILADIS [facility], [address], [address], [place], [address], 22:53:53 calci um, ioniz ed, blood 2022 [email or web address] [facility], [address], [address], [place], [address], 11:32:01 phosp horus , serum or plasm a 2022 023 MILADIS [facility], [address], [address], [place], [address], 22:43:04 PSA, serum or plasm a 2022 023 MILADIS [facility], [address], [address], [place], [address], 22:55:34 CBC w/ auto diff 2022 023 MILADIS [facility], [address], [address], [place], [address], 21:24:13 TSH, serum or plasm a 2022 023 MILADIS [facility], [address], [address], [place], [address], 3 22:55:35 CMP, serum or plasm a 2022 023 MILADIS [facility], [address], [address], [place], [address], 3 22:43:02 magne sium, serum or plasm a 2022 023 MILADIS [facility], [address], [address], [place], [address], 3 22:43:06 lipid panel , serum 2022 023 MILADIS [facility], [address], [address], [place], [address], 3 22:43:05 HbA1c (hemo globi n A1c), blood 2022 023 MILADIS [facility], [address], [address], [place], [address], 21:46:22 micro album in, urine 2022 023 MILADIS [facility], [address], [address], [place], [address], 3 00:11:14 vitam in B12, serum 2022 023 MILADIS [facility], [address], [address], [place], [address], 3 22:55:32 hepat itis C virus Ab, serum 2022 023 MILADIS [facility], [address], [address], [place], [place], [address], 03:06:18 Referral sleep medic ine refer ral - Scree n for NERISSA and if modaf inil best tx for shift work disor edin in setti ng of tachy cardi a where previ ous pcp was santos sarkar this with jose stahl. 2022 023 [email or web address] [facility], [address] [place], [address], 10:51:52 Procedures None recor ded. Surgeries None recor ded. Imaging elect darrian diogr am 2022 [email or web address] In-Office Order, Internal Use Only DO Not Attach Compendium DO Not Attach Compendium, Do Not Delete/merge, [id number] 16:13:46 XR, chest , 2 view 2022 [email or web address] s Not available 17:11:13 exerc isradha garza s echoc ardio gram 2022 023 [email or web address] [facility], [address] [place] [address], [address], 13:02:15 Medication Orders rosuv astat in 10 mg table t 2022 023 [facility][id number], [address] [place], [address], 3 10:20:05 Ozemp ic 0.25 mg or 0.5 mg (2 mg/3 mL) subcu taneo us pen injec tor 2022 023 [facility][id number], [address] [place], [address], 3 10:17:56 Patient TargetsNo targets recorded. Patient Instructions Encounter Date Encounter Id Patient Instructions Last Modified By Organization Details Last Modified Time 02/27/2023 [id number] starting a weigh t loss plan: care instructions Not available 02/27/2023 11:32:01 Well Visit, Ages 18 to 65: Care Instructions Not available 02/27/2023 11:32:00 Reason for Referral Sleep Medicine Referral for Snoring Screen for NERISSA and if modafinil best tx for shift work disorder in setting of tachycardia where previous pcp was giving this with propranolol. Referring Physician: Kayy Chapa, Family Medicine, Encounter Date: 02/27/2023 Results Created Date Observation Date Name Description Value Unit Range Abnormal Flag Note LastModifiedBy Organization Detail LastModifiedTime 03/01/2003/01/2023 COMPL ETE CBC WITH DIFF WBC 8.4 K/mm3 (4.0-1 1.0) Not Available [facility] [address] [place], [address], 03/01/2023 21:24:13 03/01/2003/01/2023 COMPL ETE CBC WITH DIFF RBC 5.72 M/mm3 (4.70- 6.10) Not Available [facility] [address] [place], [address], 03/01/2023 21:24:13 03/01/2003/01/2023 COMPL ETE CBC WITH DIFF HGB 17.5 gm/dL (13.7- 17.1) high Not Available [facility] [address] [place], [address], 03/01/2023 21:24:13 03/01/2003/01/2023 COMPL ETE CBC WITH DIFF HCT 52.2 % (40.5- 50.0) high Not Available [facility] [address] [place], [address], 03/01/2023 21:24:13 03/01/2003/01/2023 COMPL ETE CBC WITH DIFF MCV 91.3 fL (80.0- 94.0) Not Available [facility] [address] [place], [address], 03/01/2023 21:24:13 03/01/2003/01/2023 COMPL ETE CBC WITH DIFF MCH 30.6 pg (27.0- 34.0) Not Available [facility] [address] [place], [address], 03/01/2023 21:24:13 03/01/2003/01/2023 COMPL ETE CBC WITH DIFF MCHC 33.5 g/dL (33.0- 37.0) Not Available [facility] [address] [place], [address], 03/01/2023 21:24:13 03/01/2003/01/2023 COMPL ETE CBC WITH DIFF plt 269 K/mm3 (150-4 60) Not Available [facility] [address] [place], [address], 03/01/2023 21:24:13 03/01/2003/01/2023 COMPL ETE CBC WITH DIFF RDW-SD 43.6 fL (<47.0 ) Not Available [facility] [address] [place], [address], 03/01/2023 21:24:13 03/01/2003/01/2023 COMPL ETE CBC WITH DIFF MPV 9.8 fL (9.4-1 2.4) Not Available [facility] [address] [place], [address], 03/01/2023 21:24:13 03/01/2003/01/2023 COMPL ETE CBC WITH DIFF automated NRBC 0.0 #/100 _WBC' s Not Available [facility] [address] [place], [address], 03/01/2023 21:24:13 03/01/2003/01/2023 COMPL ETE CBC WITH DIFF abs. NRBC 0.0 K/mm3 Not Available [facility] [address] [place], [address], 03/01/2023 21:24:13 03/01/2003/01/2023 COMPL ETE CBC WITH DIFF neut # 4.8 K/mm3 (1.3-7 .0) Not Available [facility] [address] [place], [address], 03/01/2023 21:24:13 03/01/20 23 03/01/2023 COMPL ETE CBC WITH DIFF lymph # 2.8 K/mm3 (0.8-3 .1) Not Available [facility] [address] [place], [address], 03/01/2023 21:24:13 03/01/2003/01/2023 COMPL ETE CBC WITH DIFF mono# 0.5 K/mm3 (0.4-1 .3) Not Available [facility] [address] [place], [address], 03/01/2023 21:24:13 03/01/20 23 03/01/2023 COMPL ETE CBC WITH DIFF eo # 0.1 K/mm3 (0.0-0 .4) Not Available [facility] [address] [place], [address], 03/01/2023 21:24:13 03/01/20 23 03/01/2023 COMPL ETE CBC WITH DIFF baso # 0.1 K/mm3 (0.0-0 .1) Not Available [facility] [address] [place], [address], 03/01/2023 21:24:13 03/01/2003/01/2023 COMPL ETE CBC WITH DIFF abs. imm gran 0.0 K/mm3 Not Available [facility] [address] [place], [address], 03/01/2023 21:24:13 03/01/20 23 03/01/2023 COMPL ETE CBC WITH DIFF neut 57.3 % (44-76 ) Not Available [facility] [address] [place], [address], 03/01/2023 21:24:13 03/01/20 23 03/01/2023 COMPL ETE CBC WITH DIFF lymph 33.9 % (15-43 ) Not Available [facility] [address] [place], [address], 03/01/2023 21:24:13 03/01/20 23 03/01/2023 COMPL ETE CBC WITH DIFF monocyte 6.3 % (4.5-1 0.5) Not Available [facility] [address] [place], [address], 03/01/2023 21:24:13 03/01/20 23 03/01/2023 COMPL ETE CBC WITH DIFF eo 1.3 % (0-6) Not Available [facility] [address] [place], [address], 03/01/2023 21:24:13 03/01/20 23 03/01/2023 COMPL ETE CBC WITH DIFF baso 0.7 % (0-2) Not Available [facility] [address] [place], [address], 03/01/2023 21:24:13 03/01/20 23 03/01/2023 COMPL ETE CBC WITH DIFF imm gran 0.5 % Not Available [facility] [address] [place], [address], 03/01/2023 21:24:13 03/01/20 23 03/01/2023 HEMOG LOBIN A1C hemoglobin A1C 8.7 % (4.0-5 .6) high MONIT ORING : In known diabe tic patie nts, hemog lobin A1c targe ts shoul d be discu ssed with healt h care provi edin. DIAGN OSTIC USE: The Ameri can Diabe carly Assoc iatio n (ADA) and the World Healt h Organ izati on (WHO) recom mend the use of HbA1c to diagn ose diabe carly using a thres hold of 6.5%. Patie nts who have an HbA1c betwe en 5.7% and 6.4% are consi dered at incre ased risk for devel oping diabe carly in the futur e. CAUTI ON: False ly low HbA1c resul ts may be obser michele in patie nts with hemol ytic anemi a, homoz ygous forms of abnor mal hemog lobin (e.g. SS, CC, SC), pregn giselle, recen t blood loss or hemog lobin F great er than 7%. Fruct osami ne may be used as an alter claudia test in these cases . REFER ENCE: ADA: Stand ards of Medic al Care in Diabe carly 2019, The Journ al of Clini stephenie and Appli ed Resea [facility] and Educa tion Volum e 43, Suppl ement 1 Not Available [facility] [address] [place], [address], 03/01/2023 21:46:22 03/01/20 23 03/01/2023 COMPR EHENS TRICIA METAB OLIC PANL glucose 175 mg/dL (70-99 ) high Not Available [facility] [address] [place], [address], 03/01/2023 22:43:02 03/01/20 23 03/01/2023 COMPR EHENS TRICIA METAB OLIC PANL BUN 18 mg/dL (6-20) Not Available [facility] [address] [place], [address], 03/01/2023 22:43:02 03/01/20 23 03/01/2023 COMPR EHENS TRICIA METAB OLIC PANL creatinine 1.3 mg/dL (0.7-1 .2) high Not Available [facility] [address] [place], [address], 03/01/2023 22:43:02 03/01/20 23 03/01/2023 COMPR EHENS TRICIA METAB OLIC PANL sodium 136 mmol/ L (133-1 45) Not Available [facility] [address] [place], [address], 03/01/2023 22:43:02 03/01/20 23 03/01/2023 COMPR EHENS TRICIA METAB OLIC PANL potassium 4.0 mmol/ L (3.6-5 .2) Not Available [facility] [address] [place], [address], 03/01/2023 22:43:02 03/01/20 23 03/01/2023 COMPR EHENS TRICIA METAB OLIC PANL chloride 96 mmol/ L (98-10 7) low Not Available [facility] [address] [place], [address], 03/01/2023 22:43:02 03/01/20 23 03/01/2023 COMPR EHENS TRICIA METAB OLIC PANL bicarbonate 25 mmol/ L (22-29 ) Not Available [facility] [address] [place], [address], 03/01/2023 22:43:02 03/01/20 23 03/01/2023 COMPR EHENS TRICIA METAB OLIC PANL anion gap 15 (4-17) Not Available [facility] [address] [place], [address], 03/01/2023 22:43:02 03/01/20 23 03/01/2023 COMPR EHENS TRICIA METAB OLIC PANL albumin 4.9 gm/dL (3.4-4 .8) high Not Available [facility] [address] [place], [address], 03/01/2023 22:43:02 03/01/20 23 03/01/2023 COMPR EHENS TRICIA METAB OLIC PANL calcium 10.6 mg/dL (8.6-1 0.5) high Not Available [facility] [address] [place], [address], 03/01/2023 22:43:02 03/01/20 23 03/01/2023 COMPR EHENS TRICIA METAB OLIC PANL bilirubin,to haile 1.1 mg/dL (0-1.2 ) Not Available [facility] [address] [place], [address], 03/01/2023 22:43:02 03/01/20 03/01/2023 COMPR EHENS TRICIA METAB OLIC PANL total protein 7.1 gm/dL (6.2-8 .2) Not Available [facility] [address] [place], [address], 03/01/2023 22:43:02 03/01/20 23 03/01/2023 COMPR EHENS TRICIA METAB OLIC PANL Ag ratio 2.2 Not Available [facility] [address] [place], [address], 03/01/2023 22:43:02 03/01/20 23 03/01/2023 COMPR EHENS TRICIA METAB OLIC PANL AST 26 U/L (0-40) Not Available [facility] [address] [place], [address], 03/01/2023 22:43:02 03/01/20 23 03/01/2023 COMPR EHENS TRICIA METAB OLIC PANL alk phos 145 U/L (40-12 9) high Not Available [facility] [address] [place], [address], 03/01/2023 22:43:02 03/01/20 23 03/01/2023 COMPR EHENS TRICIA METAB OLIC PANL ALT 35 U/L (0-41) Not Available [facility] [address] [place], [address], 03/01/2023 22:43:02 03/01/20 23 03/01/2023 COMPR EHENS TRICIA METAB OLIC PANL estimated GFR creatinine 74 mL/mi n/1.7 3_M2 Creat inine based estim ated glome rular filtr ation (eGFR ) in adult s is calcu lated using the Natio nal Kidne y Found ation recom reg d 2020 CKD-E PI equat ion. Estim ates GFR from serum creat inine , age and sex. Not Available [facility] [address] [place], [address], 03/01/2023 22:43:02 03/01/20 23 03/01/2023 PHOSP HORUS phosphorus 3.9 mg/dL (2.5-4 .5) Not Available [facility] [address] [place], [address], 03/01/2023 22:43:04 03/01/20 23 03/01/2023 LIPID PANEL cholesterol, total 172 mg/dL (<200) Not Available [facility] [address] [place], [address], 03/01/2023 22:43:05 03/01/20 23 03/01/2023 LIPID PANEL triglyceride 281 mg/dL (<150) high Not Available [facility] [address] [place], [address], 03/01/2023 22:43:05 03/01/20 23 03/01/2023 LIPID PANEL HDL chol 35 mg/dL (>39) low Not Available [facility] [address] [place], [address], 03/01/2023 22:43:05 03/01/20 23 03/01/2023 LIPID PANEL LDL cholesterol, calculated 81 mg/dL (0-130 ) Not Available [facility] [address] [place], [address], 03/01/2023 22:43:05 03/01/20 23 03/01/2023 LIPID PANEL non HDL cholesterol (calc) 137 mg/dL (<160) Not Available [facility] [address] [place], [address], 03/01/2023 22:43:05 03/01/20 23 03/01/2023 MAGNE SIUM magnesium 1.9 mg/dL (1.6-2 .3) Not Available [facility] [address] [place], [address], 03/01/2023 22:43:06 03/01/20 23 03/01/2023 PH CORRE CTED IONIZ ED CALCI UM pH corrected ionized calcium 1.23 mmol/ L (1.13- 1.32) Not Available [facility] [address] [place], [address], 03/01/2023 22:47:59 03/01/20 23 03/01/2023 PTH, INTAC T PTH, intact 30 pg/mL (15-65 ) Not Available [facility] [address] [place], [address], 03/01/2023 22:53:52 03/01/20 23 03/01/2023 VITAM IN B12 vitamin B12 573 pg/mL (232-1 245) Not Available [facility] [address] [place], [address], 03/01/2023 22:55:32 03/01/20 23 03/01/2023 PSA SCREE N PSA 0.5 NG/mL (0-4) TEST PERFO RMED USING THE [employer] ELECT [employer] CENCE TOTAL PSA ASSAY . PSA VALUE S OBTAI STACIE WITH OTHER ASSAY METHO DS OR KITS CANNO T BE USED INTER COTTO EABLY . Not Available [facility] [address] [place], [address], 03/01/2023 22:55:33 03/01/20 23 03/01/2023 TSH WITH REFLE X TO FT4 TSH 1.90 uIU/m L (0.4-4 .2) Not Available [facility] [address] [place], [address], 03/01/2023 22:55:35 03/01/20 23 03/01/2023 25OH VITAM IN D 25OH vitamin D 20.6 NG/mL (20-50 ) Not Available [facility] [address] [place], [address], 03/01/2023 22:55:36 03/01/20 23 03/02/2023 URINA RY MICRO ALBUM IN micro-albumi n 51.0 mg/L (<20) high The urine micro album in test is desig stacie to monit or renal funct ion. When scree kadie for Bence Martinez prote inuri a, urine elect ropho keanu is recom reg rolle. Not Available [facility] [address], [place], [address], 03/02/2023 00:11:14 03/01/20 23 03/02/2023 URINA RY MICRO ALBUM IN malb/creat ratio 25.7 mg/gm (0-20) high Not Available [facility] [address], [place], [address], 03/02/2023 00:11:14 03/01/20 23 03/02/2023 URINA RY MICRO ALBUM IN urine creat for micro albumin 199.8 mg/dL Not Available [facility] [address], [place], [address], 03/02/2023 00:11:14 03/01/20 23 03/04/2023 ANTI- HEPAT ITIS C anti-hepatit is C (neg) Non React tricia Refer ence range : Non React tricia (NOTE ) HCV antib anneliese alone does not diffe renti ate betwe en previ ously resol michele infec tion and activ e infec tion. Equiv ocal and React tricia HCV antib anneliese resul ts shoul d be follo wed up with an HCV RNA test to suppo rt the diagn osis of activ e HCV infec tion. Test perfo rmed by [facility], [address], [place] [address] Not Available [facility] [address], [place], [address], 03/04/2023 03:06:18 03/01/20 23 03/09/2023 ANTI MITOC HONDR IAL ANTIB ANNELIESE WITHO UT INTER P anti mitochondria l antibody wi <20.0 Refer ence range : 0.0 to 20.0 Unit: Units (NOTE ) Negat tricia 0.0 - 20.0 Equiv ocal 20.1 - 24.9 Posit tricia >24.9 Mitoc hondr ial (M2) Antib odies are found in 90-96 % of patie nts with prima ry bilia ry cirrh osis. Test perfo rmed by [facility], [address], [place] [address] Not Available [facility] [address] [place], [address], 03/09/2023 17:06:01 03/01/20 23 03/17/2023 ALK PHOS ISO alkaline phos, total for iso 145 high Refer ence range : 44 to 121 Unit: IU/L Test perfo rmed by [facility], [address], [place] [address] Not Available [facility] [address] [place], [address], 03/17/2023 19:06:05 03/01/20 23 03/17/2023 ALK PHOS ISO bone fraction, alk phos isoenz TEST NOT PERFOR MED (NOTE ) Test not perfo rmed Not Available [facility] [address] [place], [address], 03/17/2023 19:06:05 03/01/20 23 03/17/2023 ALK PHOS ISO intestinal frac alk phos isoen TEST NOT PERFOR MED (NOTE ) Test not perfo rmed Not Available [facility] [address] [place], [address], 03/17/2023 19:06:05 03/01/20 23 03/17/2023 ALK PHOS ISO liver fraction alk phos isoenz TEST NOT PERFOR MED (NOTE ) Test not perfo rmed Test perfo rmed at [facility] [place] , [address] [facility] , [place] [address] Not Available [facility] [address], [address], 03/17/2023 19:06:05 02/29/20 23 02/28/2023 [email or web address] alex am No observ ation record ed. [email or web address] In-Office Order Internal Use Only DO Not Attach Compendium DO Not Attach Compendium, Do Not Delete/merge, [id number] 02/28/2023 08:47:46 02/29/2002/28/2023 elect roceben diogr am No observ ation record ed. [email or web address] In-Office Order Internal Use Only DO Not Attach Compendium DO Not Attach Compendium, Do Not Delete/merge, [id number] 02/28/2023 14:19:24 02/29/20 elect roceben diogr am No observ ation record ed. [email or web address] In-Office Order Internal Use Only DO Not Attach Compendium DO Not Attach Compendium, Do Not Delete/merge, [id number] 03/06/2023 22:56:49 Result Notes None recorded. Problems Name Problem SNOMED Code Status Onset Date Resolution Date Notes Provider Name and Address Organization Details Recorded Time Asthma 223127004 Active 2022 Kayy Chapa MD [address], [place], [address], [facility] 3 08:32:33 Essential hypertens ion 88418074 Active 2022 Kayy Chapa MD [address], [place], [address], [facility] 3 08:32:51 Hiatal hernia 08375056 Active 2022 Kayy Chapa MD [address], [place], [address], [facility] 3 08:33:00 Hypogonad ism 90366857 Active 2022 Kayy Chapa MD [address], [place], [address], [facility] 3 08:35:41 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 Kayy Chapa MD [address], [place], [address], [facility] 3 08:36:05 Erectile dysfuncti on 189131867 Active 2022 Kayy Chapa MD [address], [place], [address], [facility] 3 10:24:58 Morbid obesity 278775514 Active 2022 Kayy Chapa MD [address], [place], [address], [facility] 3 10:48:09 Body mass index 40+ - severely obese 850835239 Active 2022 Kayy Chapa MD [address], [place], [address], [facility] 3 10:48:10 Male infertili ty 2739753 Active 2022 Kayy Chapa MD [address], [place], [address], [facility] 3 10:48:21 Type 2 diabetes mellitus without complicat ion 773137944 Completed 202203/07/2023 Kayy Chapa MD [address], [place], [address], [facility] 3 18:36:38 Hyperglyc emia due to type 2 diabetes mellitus 085397293684 109 Active 2022 Kayy Chapa MD [address], [place], [address], [facility] 3 18:37:03 Renal disorder due to type 2 diabetes mellitus 528524800 Active 2022 Kayy Chapa MD [address], [place], [address], [facility] 3 18:37:20 Uncontrol led type 2 diabetes mellitus 755061656 Active 2022 Kayy Chapa MD [address], [place], [address], [facility] 3 18:37:31 Microalbu minuric diabetic nephropat hy 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 Procedures Surgical History Date Name Laterality Status Provider Name and Address Organization Details Recorded Time 08/21/19 24 Diabetic Foot Exam (Monofilament) cancelled Kayy Chapa MD [address] [address], [place], [address], [facility] 07/05/2023 08:08:36 02/28/20 23 Diabetic Foot Exam (Monofilament) completed Kayy Chapa MD [address] [address], [place], [address], [facility] 02/27/2023 10:56:29 08/04/19 20 procedure on tendon completed Mary hernandez MA [facility] 02/27/2023 10:17:55 08/16/18 83 Circumcision completed Mary hernandez MA [facility] 02/27/2023 10:12:57 extraction of wisdom tooth completed Mary hernandez MA [facility] 02/27/2023 10:18:07 Imaging Results Imaging Date Name Status LastModified by Organization Details LastModified Time 02/28/2023 electrocardiogram completed [email or web address] In-Offi ce Order Internal Use Only DO Not Attach Compendium DO Not Attach Compendium, Do Not Delete/merge, [id number] 02/28/2023 08:47:46 02/28/2023 electrocardiogram completed [email or web address] In- Office Order Internal Use Only DO Not Attach Compendium DO Not Attach Compendium, Do Not Delete/merge, [id number] 02/28/2023 14:19:24 02/28/2023 electrocardiogram completed [email or web address] In-Offi ce Order Internal Use Only DO Not Attach Compendium DO Not Attach Compendium, Do Not Delete/merge, [id number] 03/06/2023 22:56:49 Procedure Notes None recorded. Medical Equipment None Reported. Allergies No known drug allergies Medications Name Sig Start Date Stop Date Status Note LastModified by Organization Details LastModified Time amoxicill in 500 mg capsule TAKE 1 CAPSULE BY MOUTH TWICE A DAY active Not Available Not Available No t Available azithromy elsy 250 mg tablet TAKE 2 TABLETS BY MOUTH TODAY, THEN TAKE 1 TABLET DAILY FOR 4 DAYS DIRECTED 02/27 completed Not Available Not Available Not Available prednison e 20 mg tablet TAKE 2 TABLETS BY MOUTH DAILY FOR 5 DAYS 02/27 completed Not Available Not Available Not Available modafinil 200 mg tablet Take 1 tablet every day by oral route. active Not Available Not Available No t Available benzonata te 100 mg capsule TAKE 1 CAPSULE BY MOUTH 3 TIMES PER DAY FOR 5 DAYS FOR COUGH 02/27 completed Not Available Not Available Not Available neomycin- polymyxin -dexameth 3.5 mg/mL-10, 000 unit/mL-0 .1% eye drops INSTILL 1 DROP INTO AFFECTED EYE EVERY 4 HOURS FOR 7 DAYS 02/27 completed Not Available Not Available Not Available lisinopri l 10 mg tablet TAKE 1 TABLET BY MOUTH EVERY DAY FOR HIGH BLOOD PRESSURE . 2023 active Not Available Not Available Not Avai lable HCG 10,000 unit intramusc ular solution Inject 1000 units every 72 hours by intramus cular route. active from uro Not Available Not Available No t Available hydrochlo rothiazid e 25 mg tablet TAKE 1 TABLET BY MOUTH EVERY DAY active Not Available Not Available No t Available testoster one cypionate 200 mg/mL intramusc ular oil INJECT 0.5 ML SUBCUTAN EOUSLY EVERY WEEK FOR 4 WEEKS DISCARD EXCESS active Not Available Not Available No t Available albuterol sulfate HFA 90 mcg/actua tion aerosol inhaler 2 PUFF INHALED EVERY 6 HOURS NEEDED FOR SHORTNES S OF BREATH OR WHEEZING FOR 30 DAYS 04/03 completed changed to levalbut yanique HFA Not Available Not Available Not Available propranol ol 20 mg tablet TAKE 1 TABLET BY MOUTH EVERY DAY active Not Available Not Available No t Available metformin ER 500 mg tablet,ex tended release 24 hr Take 1 tablet po twice daily 2023 active Not Available Not Available Not Avai lable rosuvasta tin 10 mg tablet Take 1 tablet every day by oral route for 90 days. active Not Available Not Available No t Available tadalafil 20 mg tablet TAKE ONE TABLET BY MOUTH ONCE A DAY ON DEMAND 30 TO 60 MINUTES BEFORE INTENDED ACTIVITY NEEDED active Not Available Not Available No t Available levalbute rol HFA 45 mcg/actua tion aerosol inhaler 2 puffs every 4 hours as needed active Not Available Not Available No t Available BD Ultra-Fin e Short Pen Needle 31 gauge x 5/16 active Not Available Not Available Not Available Ozempic 0.25 mg or 0.5 mg (2 mg/3 mL) subcutane ous pen injector INJECT 0.5 MG SUBCUTAN EOUSLY EVERY WEEK FOR 30 DAYS. active Not Available Not Available No t Available Vitals Date Recorded Body height Body mass index (BMI) Body weight Heart rate Oxygen saturation Oxygen saturation in Arterial blood by Pulse oximetry Body temperature Systolic blood pressure Diastolic blood pressure Provider Name and Address Organization Details Last Updated DateTime 172.72 cm 42.7 kg/m2 662211. 46 g 94 /min 96 % 96 % 98.3 [degF] 131 mm[Hg] 78 mm[Hg] Mary arias MA [facility] 10:12:27 Date Recorded Systolic blood pressure Diastolic blood pressure Provider Name and Address Organization Details Last Updated DateTime 02/27/2023 138 mm[Hg] 86 mm[Hg] Maia Shukla LPN [facility] 02/27/2023 11:32:04 Date Recorded Body height Provider Name an d Address Organization Details Last Updated DateTime 03/13/2023 172.72 cm Jennifer Joseph MA [facility] Julissa [facility] 03/13/2023 09:28:46 Social History Question Answer Notes LastModified by Organizat ion Details LastModified Time Tobacco Smoking Status Never Smoker [facility] 02/27/2023 10:15:26 What Is Your Level Of Alcohol Consumption? Occasional Minimal/so cial Information not available 02/27/2023 Is Blood Transfusion Acceptable In An Emergency? Yes Information not available 02/27/2023 What Is Your Level Of Caffeine Consumption? Moderate Pre-workou t Drink Information not available 02/27/2023 Are You Currently Employed? Yes Information not available 02/27/2023 What Type Of Diet Are You Following? 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 Yes Information not available 02/27/2023 How Often Do You Need To Have Someone Help You When You Read Instructions, Pamphlets, Or Other Written Material From Your Doctor Or Pharmacy? Never Information not available 02/27/2023 Have You Served In The ? No Information not available 02/27/2023 How Many Children Do You Have? 1 Jonny Information not available 02/27/2023 Do You Use Protection During Sex? No Information not available 02/27/2023 Are You Sexually Active? Yes Jean Marie Information not available 02/27/2023 Do You Have Smoke And Carbon Monoxide Detectors In Your Home? Yes Information not available 02/27/2023 How Much Tobacco Do You Smoke? No Information not available 02/27/2023 Do You Use Any Illicit Or Recreational Drugs? No Information not available 02/27/2023 Do You Or Have You Ever Used Any Other Forms Of Tobacco Or Nicotine? No Information not available 02/27/2023 Sex: Unknown Functional Status Question Answer Note LastModified by Organizat ion Details LastModified Time Are you able to walk? YESWOREST Information not available 02/27/2023 Are you able to care for yourself? Yes Information not available 02/27/2023 What is your exercise level? Heavy lifting 3-4 x week; walking, Jiu Jitsu Information not available 02/27/2023 Mental Status None recorded. Family History Relationship Description Onset Age of this Age Resolved Age Notes LastModified by Organization Details LastModified Time Paternal Grandmother Alzheimer's disease bsolivanmatto s Not available 02/27/2023 10:12:55 Maternal Grandmother Multiple sclerosis bsolivanmatto s Not available 02/27/2023 10:12:55 Paternal Grandfather Hypertensive disorder bsolivanmatto s Not available 02/27/2023 10:12:55 Father Obesity bsolivanmatto s Not available 02/27/2023 10:12:55 Father Diabetes mellitus bsolivanmatto s Not available 02/27/2023 10:12:55 Medical History Condition Response GI Problems Y Diabetes Y Obesity Y Vision or Eye Problems Y Acid Reflux (GERD) Y Eczema Y Asthma Y Hypertension Y Immunizations Vaccine Type Date Status Note Provider Name and Address Organization Details Recorded Time Influenza, split virus, quadrivalent , PF 7 completed Mary Mathias VARSHA null, [facility] 02/28/2023 14:15:39 Influenza, split virus, quadrivalent , PF 3 cancelled patient objection Kayy Chapa MD [address], [address], [facility] 02/28/2023 08:48:59 Past Encounters Encounter ID Performer Location Encounter Start Date Encounter Closed Date Diagnosis/Indication Diagnosis SNOMED-CT Code Diagnosis ICD10 Code Diagnosis Note [id number] Jennifer Reilly Main Office [address] [address] 02/27/2023 09:56:44 02/27/2023 11:16:25 Adult health examination 788681490 Z00.00 Patient was counseled on healthy diet, exercise and nutrition due to Body mass index is 42.7 kg/m??. Colon/Pros stanley CA hx?: No fhx, asymptomat ic. Vaccines:T dAP: Note had done within last 10yrs, advised to bring recordZost er rec: not frqWHG30: Advised given a1c.Influe nza: Declined understand riskCovid: encouraged Routine labs today Immunizati on status reviewed. Will screen based on risk factors. Regular dental and ophtho care advised as well as seat belt and sunscreen use. Distracted driving discussed. Medication reconciled . Fatigue 87595686 R53.83 Z00.00 Hyperlipidemia 62218332 E78.5 Z00.00 Hepatitis C screening 41 6790954 Z11.59 Patient ne w to provider [id number] 28178 Z76.89 previous record reviewed. Type 2 anoop betes mellitus without complication 784046494 E11.9 Essential hypertension 11110566 I10 Hypercalcemia 28056463 E 83.52 Hypogonadism 42555808 E2 9.1 Influenza vaccination declined 548921860 Z28.21 Administra tion of pneumococcal vaccine 50621234 Z23 Morbid obesity 177069278 E66.01 - Diet and exercise discussed- Patient made aware of risks of obesity- Encouraged to loose weight.- Avoid starchy and fatty food- Encouraged use of green vegetables and fruits Body mass index 40+ - severely obese 896662104 E66.01 Z68.41 Snoring 64030884 R06.83 Stop bang 5 and also on T, will screen for NERISSA.Also takes modafinil for shift work disorder in setting of tachycardi a where previous pcp was giving this with janine stahl thus will see if sleep med has better input to best tx. Tachycardia 3645830 R00. 0 On propanolol with no workup ever being done.Could be due to weight.Den ies excessive etoh or caffeine use.Hydrat ion enforced.W ill get baseline echo to see if any structural path.Could be due to NERISSA, sleep study placed. Inverted T wave 48814053 R94.31 V5 noted on ecg, he is otherwise asymptomat ic, ED precaution discussed. Will get stress echo. [id number] Mary quick MA Main Office [address] [facility] VARSHA [place] [phone] 02/28/2023 14:12:03 02/28/2023 14:23:29 Tachycardia 5038071 R00.0 On propanolol with no workup ever being done.Could be due to weight.Den ies excessive etoh or caffeine use.Hydrat ion enforced.W ill get baseline echo to see if any structural path.Could be due to NERISSA, sleep study placed. [id number] Roz Babin PA-C [facility] [address] [facility] [address] [facility] [place] [id number] 03/13/2023 09:00:30 03/13/2023 10:43:21 Hyperglycemia due to type 2 diabetes mellitus 7686558411 53629 E11.65 Total time spent teaching and coordinati ng diabetic care 40 minutes. Basic physiology of Type II Diabetes Mellitus was reviewed. Glucose records were discussed. WE had lengthy discussion on difference between testing with CGM vs fingerstic k and he was advised to use CGM. He will think about it. If he uses fingerstic k device , advised to test 3 times daily one day before meals , next day 1-2 hrs after the meal. Goal for fasting glucose is 80-130 and 1-2 hrs after the meal under 180. Pt. was instructed on low calorie eating , avoiding processed foods and recommende d to increase hydration with water. Pt. was advised to start exercise activity by walking 30 min at least 3 times weekly and increase weekly or by weekly to 4-6 day per week. If unable to walk , pt. should use other exercise modalities /equipment that is stationary at home or in the gym for that amount of time weekly or water exercises. Continue metfromin started by PCP. WE discussed starting GLP-1 inhibitor to achieve better diabetic control, but also benefit from cardiac protection and being studied for renal disease as well. Benefit of weight loss was also discussed. Pt. is will to try Ozempic. We discussed possible side effects of this class of medicine. Start at 0.25 mg weekly for 4 weeks, then 0.5 mg weekly.F/u 6 weeks. A1c and bmp prior to visit advised. Hypertriglyceridemia 302 895354 E78.1 High cardiovasc ular risk discussed with pt due to obesity, and high TRG and low HDL. Recommend to start statin at small dose and repeat lipids in 6 weeks. Advised to follow low fat anD LOW CARB DIET. Health Concerns Section Related Observation LastModified by Organization Qiana cardoza LastModified Time None Recorded Concern Status LastModified by Organization Details LastModified Time None Recorded Advance Directives Directive None Recorded Payers Encounter Date Sequence Insurance Name Policy Number Policy Alcaraz Covered Member ID Alcaraz Member ID Guarantor Name 02/27/2023 1 [employer]-VARSHA: BLUE CHOICE PLAN 2 (POS) [id number] S Jonny Botello [id number] Jonny Botello 02/28/2023 1 [facility]-VARSHA: BLUE CHOICE PLAN 2 (POS) [id number] S Jonny Botello [id number] Jonny Botello 03/13/2023 1 [employer]-VARSHA: BLUE CHOICE PLAN 2 (POS) [id number] S Jonny Botello [id number] Jonny Botello Notes Date Note Type Note Provider Name and Address Organization Details Recorded Time 02/27/2023 text/html Patient present for well/new adult visit Takes modafinil for shift work disorder from previous MD. interestingly not on any tx for A1c of >7.On propranolol for tachycardia but tells me he has not had any workup ever. Is not using ASA. OTC/Herbal supplements use: denies Sex hx: 1 F partnerSTI: DeniesDrug use: DeniesEtoh use: Social, less than 1 drink/weektobacco use: deniesspf/derm: spf use advised, denies abnormal mole Dental: Follows every 6mo, up to dateEye: Has contact, follows yearly, due, encouraged follow up.Diet: Tries for low carbActivity: Life 3-4x/week, walk, little cardio. Jennifer lockwood [facility] 03/07/2023 09:24:35 03/13/2023 text/html Diabetes F/URepo rted bypatient.Context:seei eye doctor regularly;home blood sugar range high;not taking aspirin daily; started on metfromin er 500 2 daily few days ago. Tolerates well so far. Associated Symptoms:no weight loss; no dizziness; no sweats; no headaches; no increased thirst; no increased appetite; no increased urination; no blurred vision; no numbness of feet; no calluses on feetNotes:42 year old male presents for diabetic counseling and f/u. Has about 5-6 year h/o Type II Diabetes Mellitus associated with diabetic microalbuminuric nephropathy. Other Dx are hypertension, hypertriglyceredemia , morbid obesity. Most current Hemoglobin A1c was 8.7% done done 2 weeks ago. Microalbumin was mild. Pt. is on acei. Not taking statin. Pt. has family h/o Diabetes Mellitus and obesity. Current BMI is 42.7. Testing with fingerstick device. Not interested in trying CGM at this time. Roz Babin PA-C [address] [address], [place], [address], [facility] 03/13/2023 10:22:39
--- OUTSIDE RECORDS SUMMARY | 2024-06-21 10:52 | XMS_ITS | Clinical Summary ---
Author Organization [facility] Address [address] [place] [address] Care Team Providers Care Pharmacy Teacher Name Role Phone Unavailable Primary Care Provider Unavailabl e Allergies No known active allergies Medications chorionic gonadotropin (Pregnyl) 10,000 unit injectionIndicati ons:Azoospermia Inject 2,000 Units as directed 3 (three) times a week. 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 Social History Tobacco Use Types Packs/Day Years Used Date Smoking Tobacco: Never Smokeless Tobacco: Never Tobacco Cessation:Counseling Given: Not Answered Sex and Gender Information Value Date Recorded Sex Assigned at Not on file Legal Sex Male 3:53 PM EST Gender Identity Not on file Sexual Orientation Not on file Last Filed Vital Signs Vital Sign Reading Time Taken Comments Blood Pressure 157/96 08/17/2023 10:07 AM EDT Pulse 98 08/17/2023 10:07 AM EDT Temperature - - Respiratory Rate - - Oxygen Saturation - - Inhaled Oxygen Concentration - - Weight 127 kg (280 lb) 08/17/2023 10:07 AM EDT Height 172.7 cm (5' 8 ) 08/17/2023 10:07 AM EDT Body Mass Index 42.57 08/17/2023 10:07 AM EDT Plan of Treatment Health Maintenance Due Date Last Done Comments HIV Screening 1982 Pneumococcal Vaccine: Pediat rics (0 to 5 Years) and At-Risk Patients (6 to 64 Years) (1 of 2 - PCV) 1988 Diabetes: Retinopathy Screening 2000 Hepatitis C Screening 2000 Hepatitis B Vaccines (1 of 3 - 19+ 3-dose series) 2001 DTaP,Tdap,and Td Vaccines (1 - Tdap) 01/27/2017 01/26/2017 COVID-19 Vaccine (1 - 2023-2 5 season) 2024 Influenza Vaccine (#1) 2024 03/15/2017 Diabetes: Hemoglobin A1C 05/16/2024 11/14/2023 Diabetes: Urine Microalbumin 11/13/2024 11/14/2023 Zoster Vaccines (1 of 2) 2032 HPV Vaccines Aged Out No longer eligi ble based on patient's age to complete this topic Hepatitis A Vaccines Aged Out No long er eligible based on patient's age to complete this topic MMR Vaccines Aged Out No longer eligi ble based on patient's age to complete this topic Meningococcal Vaccine Aged Out No jaskaran lazara eligible based on patient's age to complete this topic Insurance [employer] EM[employer] NON-HEP
== END 2024-06-21 11:14 | disposition home or self-care (01) ==
PROVIDERS: PCP Nurse Practitioner Family; Visit Provider Urology
DX: E29.1 Testicular hypofunction (principal); N52.9 Male erectile dysfunction, unspecified; N32.89 Other specified disorders of bladder
CPT/HCPCS: 99214

== ENCOUNTER 2024-12-02 11:49 | Outpatient (REF) | payer BC, SELFPAY ==
--- OUTSIDE RECORDS SUMMARY | 2024-12-02 12:59 | XMS_ITS | Encounter Summary ---
Author Organization [facility] Address [address] [place] [address] Care Team Providers Care Unemployment Examiner Name Role Phone Unavailable Primary Care Provider Unavailabl e Encounter Details Date Type Department Care Team (Late st Contact Info) Description 02/14/2020 Lab Requisition [facility] [address] [place] [id number] Cory Malcolm PA-C [address] [place] [id number] Encounter for laboratory testing for COVID-19 virus Social History Tobacco Use Types Packs/Day Years Used Date Smoking Tobacco: Never Assessed Sex and Gender Information Value Date Recorded Sex Assigned at Not on file Legal Sex Male 4:59 PM EDT Gender Identity Not on file Sexual Orientation Not on file documented as of this encounter Plan of Treatment Not on file documented as of this encounter Procedures Procedure Name Priority Date/Time Associated Diagnosis Comments (REPORT) SARS COV-2 RNA (COVID-19), QUAL Routine 02/14/2020 1:27 PM EDT Encounter for laboratory testing for COVID-19 virus [ICD-10-CM] documented in this encounter Results * SARS CoV-2 RNA (COVID-19), Qual (02/14/2020 1:27 PM EDT) SARS CoV 2 RNA, Qual NOT DETECTED NOT DETECTED 02/16/2020 1:00 AM EDT [facility] Comment: A Not Detected (negative) test result [...] diagnosis and patient management decisions. REFERENCE RANGE: NOT DETECTED This patient specimen was tested using an FDA EUA pooling method. Negative results from pooled testing should not be treated as definitive. If the patient's clinical signs and symptoms are [...] providers and patients using the following websites: https://www.[employer].LilLuxe/home/Covid-19/HCP/QuestLDTP/ fact-sheet https://www.[employer]/home/Covid-19/Patients/QuestLDTP/ fact-sheet.html This test has been authorized by the FDA under an Emergency Use Authorization (EUA) for use by authorized laboratories. Due to the current public health emergency, [facility] is receiving a high volume of samples [...] including collection of an additional specimen. Methodology: Nucleic Acid Amplification Test (NAAT) includes RT-PCR or TMA Additional information about COVID-19 can be found at the [facility] website: www.[employer].LilLuxe/Covid19. Microbiology Nasopharyngeal swab / Unknown 02/14/2020 1:27 PM EDT 02/14/2020 1:27 PM EDT [facility] - 02/16/2020 1:00 AM EDT Performing Organization Information: Site ID: [id number] Name: [facility] Address: [address] [place] [address],[place] [address] Director: MIGUEL VANCE MD [facility] License number [id number] us Cory Malcolm PA-C BODY FLUIDS AND STOOLS OR DERABLES Final Result Performing Organization Address City/State/[facility] Co de Phone Number [facility] documented in this encounter Visit Diagnoses Diagnosis Encounter for laboratory testing for COVID-19 virus documented in this encounter
--- OUTSIDE RECORDS SUMMARY | 2024-12-02 12:59 | XMS_ITS | Patient Health Record ---
Author Organization [facility] Address [address] [facility] [place] [address] Care Team Providers Care Supervisor Electronics Testing Name Role Phone Bon Pineda Primary Care Provider [phone] Reason For Referral No Information Medications Medication SIG (Take, Route, Fr equency, Duration) Notes Start Date End Date Status Work Note . . . Medical from wor k 08/14/14-08/17/14; Duration: . 08/14/2014 Acti ve Vicodin 5-300 MG 1-2 tablet as needed Orally every 6 hrs; Duration: 05 days 08/14/2014 Active Social History Tobacco use other than smoking: Question Answer Notes Are you an other tobacco user? No Problems Problem Type SNOMED Code ICD Code Onset Dates Problem Status W/U Status Risk Notes Problem Ingrowing Nail (703.0) Active confirmed Plan Of Treatment Pending Test Test Name Order Date [id number] 08/14/2014 Insurance Providers Payer Name Payer Address Payer Phone Subscriber Number Group Number Insured Name Patient Relationship to Insured Coverage Start Date Coverage End Date [facility] [address] [facility] VARSHA ryan [address] [phone] [id number] Jonny Botello Self - patient is the insured Medical (General) History Medical History History ICD Code Chicken pox Surgical History Surgery Date(Month/Year) shoulder surgery, left
--- OUTSIDE RECORDS SUMMARY | 2024-12-02 12:59 | XMS_ITS | Clinical Summary ---
Author Organization [employer] [facility] Address [address] [place] [phone] Phone Care Team Providers Care Toy Assembler Wood Name Role Phone Cory Renteria DO Primary Care Provider Allergies No known active allergies Medications albuterol HFA (PROAIR HFA ; PROVENTIL [...] with needle 3 mL 18 x 1 05/09 syringe Use to draw up pregnyl Active testosterone cypionate (DEPO-TESTOTERO NE) 200 mg/mL injection INJECT 0.5 ML SUBCUTANEOUSLY EVERY WEEK. DISCARD EXCESS Active modafiniL (PROVIGIL) 200 mg tabletIndicatio ns:Shift work sleep disorder Take 1 tablet (200 mg total) by mouth 1 (one) time each day. Max Daily Amount: 200 mg 30 tablet 12/26/2 024 Active tirzepatide (MOUNJARO) 15 mg/0.5 mL injectionIndica tions:Non-insul in dependent type 2 diabetes mellitus ([facility] V24, [facility] V28) Inject 0.5 mL (15 mg total) under the skin every 7 (seven) days. 2 mL 3 025 Active propranoloL (INDERAL) 20 mg tabletIndicatio ns:Essential hypertension TAKE 1 TABLET (20 MG TOTAL) BY MOUTH ONCE DAILY 90 tablet 025 Active hydroCHLOROthia zide (HYDRODIURIL) 25 mg tabletIndicatio ns:Essential hypertension TAKE 1 TABLET BY MOUTH EVERY DAY 90 tablet 025 Active hydroCHLOROthia zide (HYDRODIURIL) 25 mg tabletIndicatio ns:Essential hypertension TAKE 1 TABLET (25 MG TOTAL) BY MOUTH DAILY. 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 Hypertriglyceridemia 03/13/2023 Microalbuminuric diabetic ne phropathy ([facility] V24, [facility] V28) 03/07/2023 Hyperglycemia due to type 2 diabetes mellitus ([facility] V24, [facility] V28) 03/07/2023 Type 2 diabetes mellitus wit hout complication ([facility] V24, [facility] V28) 02/27/2023 Morbid obesity ([facility] V24, [facility] V28) 2022 Male infertility 02/27/2023 Essential hypertension 02/27/2023 Hiatal hernia 02/27/2023 Erectile dysfunction 02/27/2023 Asthma 02/27/2023 Hypogonadism in male 02/27/2023 Encounters Date Type Department Care Team Description 10/10/2024 12:30 PM EDT Telemedicine Internal Medicine [address] [phone] David Fuller DO Non-insulin dependent type 2 diabetes mellitus ([facility] V24, [facility] V28) (Primary Dx) 09/10/2024 12:00 PM EDT Telemedicine Internal Medicine [address] [phone] Cory Renteria, Non-insulin dependent type 2 diabetes mellitus ([facility] V24, [facility] V28) (Primary Dx) from Last 3 Months Immunizations Name Administration Dates Next Due Influenza Quadrivalent, 0.5m l, preservative free (Fluarix; FluLaval; Fluzone) ages 6mo and older (Afluria) 3yo and older 03/15/2017 Td Tetanus diptheria (Tdvax) 7yo and older 01/26 Surgical History Surgery Date Site/Laterality Comments TENDON REPAIR Distal PROCEDURE:TENDON REPAIR OTHER SURGICAL HISTORY PROCEDURE:bone spur Medical History Medical History Date Comments Asthma DX:Asthma Diabetes ([facility] V24, [facility] V28) DX:Diabetes ([facility]) Hypertension DX:Hypertension Obesity DX:Obesity Vision problem DX:Vision [...] Sign Reading Time Taken Comments Blood Pressure 135/78 07/24/2024 8:54 AM EDT Pulse 93 07/24/2024 8:54 AM EDT Temperature 36.5 C (97.7 F) 07/24/2024 8:54 AM EDT Respiratory Rate 18 06/26/2024 12:47 PM EST Oxygen Saturation 97% 07/24/2024 8:54 AM EDT Inhaled Oxygen Concentration - - Weight 123 kg (270 lb 12.8 oz) 07/24/2024 8:54 A M EDT Height 172.7 cm (5' 8 ) 07/24/2024 8:54 AM EDT Body Mass Index 41.17 07/24/2024 8:54 AM EDT Plan of Treatment Health Maintenance Due Date Last Done Comments Diabetes: Annual Foot Exam 1992 Diabetes: Annual Retina Eye Exam 1992 Hepatitis B Vaccines (1 of 3 - 19+ 3-dose series) 2001 Pneumococcal Vaccine: Pediatrics (0 to 5 Years) and At-Risk Patients (6 to 49 Years) (1 of 2 - PCV) 2001 HIV Screening 12/08/2023 Hepatitis C Screening 12/08/2023 COVID-19 Vaccine ( - 2023-2 5 season) 2024 Diabetes: Blood Sugar Contro l Test (HGBA1C) 12/17/2024 06/19/2024, 11/15/2023, 11/14/2023 Influenza Vaccine (#1) 2025 03/15/2017 Social Influencers of Health Screening 05/02/2025 05/02/2024 Diabetes: Annual Urine Albumin-Creatinine Ratio (uACR) 06/19/2025 06/19/2024, 11/14/2023 Diabetes: Annual GFR (Glomerular Filtration Rate) 06/19/2025 06/19/2024, 11/14/2023, 11/14/2023 Hypertension/CHF/CAD Annual BMP Blood Test 06/19/2025 06/19/2024, 11/14/2023, 11/14/2023 DTaP,Tdap,and Td Vaccines (2 - Td or Tdap) 01/26/2027 01/26/2017 Cholesterol Screening (Lipid Panel) 06/19/2029 06/19/2024, 11/14/2023, 11/14/2023 Depression Screening Completed 2024 HIB Vaccines Aged Out No longer eligi [...] age to complete this topic Meningococcal B Vaccine Aged Out No l onger eligible based on patient's age to complete this topic RSV Immunization Patients Under 20 months Aged Out No longer eligible b ased on patient's age to complete this topic Varicella Vaccines Aged Out No longer eligible based on patient's age to complete this topic Procedures Procedure Name Priority Date/Time Associated Diagnosis Comments MICROALBUMIN CREATININE URINE RATIO Routine 06/19/2024 8:29 AM EST Non-insulin dependent type 2 diabetes mellitus ([facility] V24, [facility] V28) BASIC METABOLIC PANEL Routine 06/19/2024 8:29 AM EST Non-insulin dependent type 2 diabetes mellitus ([facility] V24, [facility] V28) HEMOGLOBIN A1C Routine 06/19/2024 8:29 AM EST Non-insulin dependent type 2 diabetes mellitus ([facility] V24, [facility] V28) LIPID PANEL Routine 06/19/2024 8:29 AM EST Non-insulin dependent type 2 diabetes mellitus ([facility] V24, [facility] V28) from Last 3 Months or Most Recently Relevant to Health Maintenance Results * Microalbumin creatinine urine ratio (06/19/2024 8:29 AM EST) Creatinine, Urine 158.5 mg/dL LAB CHEMISTRY METHOD 06/19/2024 12:14 PM EST [facility] Comment:No established refer ence range. Microalb, Ur <7.0 mg/L LAB CHEMISTRY METHOD 06/19/2024 12:14 PM EST [facility] Comment:No established refer ence range. Microalb/Creat Ratio <4 <30 mg/g creat LAB CHEMISTRY METHOD 06/19/2024 12:14 PM EST [facility] Comment:Concentrations outsi de detection limits, unable to calculate ratio. Urine Urine specimen obtained by clean catch procedure / Unknown Non-blood Collection / Unknown 06/19/2024 8:29 AM EST 06/19/2024 8:29 AM EST Cory Renteria DO LAB URINE ORDERABLES Fi nal Result Performing Organization Address [facility]/State/ZIP Co de Phone Number [facility] [address] [place] [address], * (ABNORMAL) Hemoglobin A1c (06/19/2024 8:29 AM EST) Hemoglobin A1C 6.7(H) <5.7 % LAB CHEMISTRY METHOD 06/19/2024 10:48 AM EST [facility] Mean Bld Glu Estim. 146 mg/dL LAB CHEMISTRY METHOD 06/19/2024 10:48 AM EST [facility] Blood Venous blood specimen / Unknown Venipuncture / Unknown 06/19/2024 8:29 AM EST 06/19/2024 8:29 AM EST Narrative [facility] - 06/19/2024 10:48 AM EST ADA Guidelines: Increased risk Diabetes Mellitus A1C 5.7 - 6.4% and Fasting Blood Glucose 100 - 125 mg/dl Diabetes Mellitus: A1C >6.5% and Fasting Blood Glucose >125 mg/dl [employer] LAB BLOOD ORDERABLES Fi nal Result [facility] [address] [place] [address], [place] [phone] * (ABNORMAL) Lipid panel (06/19/2024 8:29 AM EST) Cholesterol 183 0 - 200 mg/dL LAB CHEMISTRY METHOD 06/19/2024 10:51 AM EST [facility] Triglycerides 233(H) <150 mg/dL LAB CHEMISTRY METHOD 06/19/2024 10:51 AM EST [facility] HDL 42 32 - 70 mg/dL LAB CHEMISTRY METHOD 06/19/2024 10:51 AM EST [facility] LDL Calculated 94 50 - 130 mg/dL LAB CHEMISTRY METHOD 06/19/2024 10:51 AM EST [facility] VLDL Cholesterol Marquez 46.6 mg/dL LAB CHEMISTRY METHOD 06/19/2024 10:51 AM EST [facility] Comment:No established refer ence range. Blood Venous blood specimen / Unknown Venipuncture / Unknown 06/19/2024 8:29 AM EST 06/19/2024 8:29 AM EST Cory Renteria DO LAB BLOOD ORDERABLES Fi nal Result Performing Organization Address City/[facility]/ZIP Co de Phone Number [facility] [address] [place] [address], [place] [phone] * (ABNORMAL) Basic metabolic panel (06/19/2024 8:29 AM EST) Sodium 138 135 - 145 mmol/L LAB CHEMISTRY METHOD 06/19/2024 10:51 AM EST [facility] Potassium 4.0 3.5 - 5.1 mmol/L LAB CHEMISTRY METHOD 06/19/2024 10:51 AM EST [facility] Chloride 98 98 - 107 mmol/L LAB CHEMISTRY METHOD 06/19/2024 10:51 AM EST [facility] CO2 31 24 - 32 mmol/L LAB CHEMISTRY METHOD 06/19/2024 10:51 AM EST [facility] Anion Gap 9 5 - 14 LAB CHEMISTRY METHOD 06/19/2024 10:51 AM [facility] Glucose 138(H) 70 - 99 mg/dL LAB CHEMISTRY METHOD 06/19/2024 10:51 AM EST [facility] BUN 17 9 - 20 mg/dL LAB CHEMISTRY METHOD 06/19/2024 10:51 AM EST [facility] Creatinine 1.20 0.70 - 1.30 mg/dL LAB CHEMISTRY METHOD 06/19/2024 10:51 AM EST [facility] eGFR 78 >=60 mL/min/1. 73m2 LAB CHEMISTRY METHOD 06/19/2024 10:51 AM EST [facility] Comment:Calculation based on the Chronic Kidney Disease Epidemiology Collaboration (CKD-EPI) equation refit without adjustment for race. BUN/Creatinine Ratio 14.2 12.0 - 20.0 LAB CHEMISTRY METHOD 06/19/2024 10:51 AM [facility] Calcium 10.1 8.4 - 10.2 mg/dL LAB CHEMISTRY METHOD 06/19/2024 10:51 AM [facility] Blood Venous blood specimen / Unknown Venipuncture / Unknown 06/19/2024 8:29 AM EST 06/19/2024 8:29 AM EST Cory Renteria DO LAB BLOOD ORDERABLES Fi nal Result [facility] [address] [place] [address], from Last 3 Months or Most Recently Relevant to Health Maintenance [facility] [place] [id number] Care Teams Toy Assembler Wood Relationship Specialty Start Date End Date Cory Renteria DO [address] [facility] [address] [facility] [place] [id number] PCP - General 11/01/23
--- OUTSIDE RECORDS SUMMARY | 2024-12-02 12:59 | XMS_ITS ---
Author Name [facility] Organization Unknown Results Test Name/Text Value Interpretation Date Range Source Creat Ur-mCnc 158.5 mg/dL Normal 06/19/2024 [facility]_ [facility] Microalbumin Ur-mCnc <7.0 mg/L Normal 06/19/2024 [facility] Microalbumin/Creat Ur <4.0 mg/g creat Normal 06/19/2024 - 30 [facility] Trigl SerPl-mCnc 233.0 mg/dL Above high normal 06/19/2024 - 150 [facility] Cholest SerPl-mCnc 183.0 mg/dL Normal 06/19/2024 0 - 200 [facility] LDLc SerPl Calc-mCnc 94.0 mg/dL Normal 06/19/2024 50 - 13 0 [facility] VLDLc SerPl Calc-mCnc 46.6 mg/dL Normal 06/19/2024 [facility] HDLc SerPl-mCnc 42.0 mg/dL Normal 06/19/2024 32 - 70 [facility] _[facility] BUN SerPl-mCnc 17.0 mg/dL Normal 06/19/2024 9 - 20 [facility]_ [facility] BUN/Creat SerPl 14.2 Normal 06/19/2024 12 - 20 [facility]_ [facility] CO2 SerPl-sCnc 31.0 mmol/L Normal 06/19/2024 24 - 32 CT _[facility] eGFRcr SerPlBld CKD-EPI 2020 78.0 mL/min/1.73m2 Normal 06/19/2024 - [facility] Anion Gap SerPl-sCnc 9.0 Normal 06/19/2024 5 - 14 [facility] Glucose SerPl-mCnc 138.0 mg/dL Above high normal 06/19/2024 70 - 99 [facility] Chloride SerPl-sCnc 98.0 mmol/L Normal 06/19/2024 98 - 10 7 [facility] Creat SerPl-mCnc 1.2 mg/dL Normal 06/19/2024 0.7 - 1.3 CT _[facility] Sodium SerPl-sCnc 138.0 mmol/L Normal 06/19/2024 135 - 14 5 [facility] Potassium SerPl-sCnc 4.0 mmol/L Normal 06/19/2024 3.5 - 5 .1 [facility] Calcium SerPl-mCnc 10.1 mg/dL Normal 06/19/2024 8.4 - 10. 2 [facility] HbA1c MFr Bld 6.7 % Above high normal 06/19/2024 - 5.7 [facility] Est. average glucose Bld gHb Est-mCnc 146.0 mg/dL Normal 06/19/2024 [facility] History of Medication Use Medication Directions Dispensed Refills Start Date End Date Stat us tirzepatide (MOUNJARO) 12.5 mg/0.5 mL injection Inject 0.5 mL (12.5 mg total) under the skin every 7 (seven) days. 09/10/2024 active Lasix 20mg Tablet 08/27/2024 act danny lisinopril 08/27/2024 active MOUNJARO 10mg/0.5mL Prefilled Pen Solution for Injection 08/27/2024 active Tadalafil 5mg Tablet 08/27/2024 active tirzepatide (MOUNJARO) 10 mg/0.5 mL injection Inject 0.5 mL (10 mg total) under the skin every 7 (seven) days. 2024 active tirzepatide (MOUNJARO) 7.5 mg/0.5 mL injection Inject 0.5 mL (7.5 mg total) under the skin every 7 (seven) days. 06/28/2024 active tirzepatide (MOUNJARO) 15 mg/0.5 mL injection Inject 0.5 mL (15 mg total) under the skin every 7 (seven) days. 06/26/2024 active Ozempic 2 mg/dose (8 mg/3 mL) injection pen Inject 2 mg under the skin every 7 (seven) days. 05/02/2024 active methylPREDNISolone (MEDROL) 4 mg tablet follow package directions 02/13/2024 active semaglutide, 2 MG/DOSE, (Ozempic, 2 MG/DOSE,) 8 MG/3ML SOPN injection Inject 0.75 mL (2 mg total) under the skin once a week. 01/24/2024 active Semaglutide, 1 MG/DOSE, (Ozempic, 1 MG/DOSE,) 2 MG/1.5ML SOPN Inject 1 mg under the skin once a week. 12/20/2023 active lisinopril (PRINIVIL,ZESTRIL) tablet 10 mg 10/25/2023 active metFORMIN (GLUCOPHAGE-XR) ER 24 hr tablet 500 mg TAKE 1 TABLET BY MOUTH TWICE A DAY WITH FOOD 09/30/2023 active needle, disp, 25 gauge 25 gauge x 5/8 needle Use to inject pregnyl 09/06/2023 active NEEDLE, DISP, 25 G (MONOJECT HYPO 25GX5/8 ) 25G X 5/8 MISC Use to inject pregnyl 07/31/2019 active NEEDLE, DISP, 25 G (MONOJECT HYPO 25GX5/8 ) 25G X 5/8 MISC Use to inject pregnyl 07/31/2019 active albuterol HFA (PROAIR HFA ; PROVENTIL HFA ; VENTOLIN HFA) 90 mcg/actuation inhaler Inhale 2 puffs by mouth every 6 hours as needed. active metFORMIN XR (GLUCOPHAGE-XR) 500 mg 24 hr tablet Take 1 tablet (500 mg total) by mouth 2 (two) times a day. active modafinil (PROVIGIL) 200 MG tablet Take 1 tablet (200 mg total) by mouth daily. active propranolol (INDERAL) 20 MG tablet Take 1 tablet (20 mg total) by mouth daily. active Allergies Allergen Reaction Severity Comment Documented Date Source Statu s .NO KNOWN DRUG ALLERGIES ENS_POD CRCT Problems Problem Status Onset Date Problem Type Date of Resolution Source Asthma active ProblemAct [facility] Erectile dysfunction active ProblemAct [facility] Hypertriglyceridemia active ProblemAct [facility] Depressive disorder active ProblemAct [facility] Hiatal hernia active ProblemAct [facility] Diabetes mellitus type 2, noninsulin dependent ([facility]) active EncounterDiagnosisAct [facility] MG Essential hypertension active ProblemAct [facility] Type 2 diabetes mellitus without complication ([facility] V24, [facility] V28) active ProblemAct [facility] Morbid obesity ([facility] V24, [facility] V28) active ProblemAct [facility] Hyperglycemia due to type 2 diabetes mellitus ([facility] V24, [facility] V28) active ProblemAct [facility] Microalbuminuric diabetic nephropathy ([facility] V24[facility] V28) active ProblemAct [facility] Male infertility active ProblemAct [facility] Azoospermia active ProblemAct [facility] Hypogonadism in male active ProblemAct [facility] Ingrowing nail active EncounterDiagnosisAct ENS_PODCRCT Pain in right toe(s) active ProblemAct ENS_PODCR[facility] Pain in left toe(s) active ProblemAct ENS_PODCRCT Immunizations Vaccine Date Source Lot Number Status Influenza Quadrivalent, 0.5m l, preservative free (Fluarix; FluLaval; Fluzone) ages 6mo and older (Afluria) 3yo and older 03/15/2017 [facility] [id number] completed Td (Adult), Unspecified formulation 01/26/2017 [id number] completed Td Tetanus diptheria (Tdvax) 7yo and older 01/26/2017 [facility] [id number] completed Encounters Encounter Type Encounter Reason Primary Diagnosis Location Date Ambulatory Type 2 diabetes mellitus without complications ([facility] V24, [facility] V28) Type 2 diabetes mellitus without complications ([facility] V24, [facility] V28) [facility] 10/10/2024 Ambulatory Type 2 diabetes mellitus without complications ([facility] V24, [facility] V28) Type 2 diabetes mellitus without complications ([facility] V24, [facility] V28) [facility] 09/10/2024 Ambulatory [facility] 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, shift work type [facility] 05/02/2024 Ambulatory [facility] 03/22/2024 Ambulatory Unspecified asthma with (acute) exacerbation Unspecified asthma with (acute) exacerbation [facility] 02/13/2024 Ambulatory Organic azoospermia Organic azoospermia [facility] 11/16/2023 Ambulatory Type 2 diabetes mellitus without complications Type 2 diabetes mellitus without complications [facility] 11/14/2023 Ambulatory Testicular hypofunction Testicular hypofunction [facility] 08/17/2023 Care Team Organization Name Specialty Phone Email Start Date End Da maryanne [facility] 08/27/2024 [facility] jamie [facility] 08/27/2024 [facility] 2024 Office of the [employer] [facility] ([facility]) 03/22/2024 [facility] Care 03/18/2024 [facility] Primary Care 03/16/2024 [facility] Primary Care 0 11/16/2023 [facility] Primary Care 11/14/2023 11/19/2024 [facility] 08/17/2023
--- OUTSIDE RECORDS SUMMARY | 2024-12-02 12:59 | XMS_ITS | Clinical Summary ---
Author Organization [facility] Address [address] [place] [address] Care Team Providers Care Android Ios Developer Name Role Phone Unavailable Primary Care Provider [...] Date Last Done Comments HIV Screening 1982 Diabetes: Retinopathy Screening 2000 Hepatitis C Screening 2000 Hepatitis B Vaccines (1 of 3 - 19+ 3-dose series) 2001 Pneumococcal Vaccine: Pediat rics (0 to 5 Years) and At-Risk Patients (6 to 49 Years) (1 of 2 - PCV) 2001 DTaP,Tdap,and Td Vaccines (1 - Tdap) 01/27/2017 01/26/2017 COVID-19 Vaccine (1 - 2023-2 5 season) 2024 Diabetes: Hemoglobin A1C 05/16/2024 11/14/2023 Diabetes: Urine Microalbumin 11/13/2024 11/14/2023 Influenza Vaccine (#1) 2025 03/15/2017 Zoster Vaccines (1 of 2) 2032 HPV [...] patient's age to complete this topic Insurance [employer] NON-HEP
--- OUTSIDE RECORDS SUMMARY | 2024-12-02 12:59 | XMS_ITS | Clinical Summary ---
Author Organization [facility] Address [address] [place] [address] Care Team Providers Care Clerk Television Production Name Role Phone Myra ROCA DO, Edward J Primary Care Provider Unavailable Allergies No known active allergies Medications Medication Sig Dispensed Refills Start Date End Date Status chorionic gonadotropin (PREGNYL) 71637 units injection 2,000 Units. 0 09/06/2023 Active lisinopril (PRINIVIL,ZESTRIL) tablet 10 mg 0 10/25/2023 Active metFORMIN (GLUCOPHAGE-XR) ER 24 hr tablet 500 mg TAKE 1 TABLET BY MOUTH TWICE A DAY WITH FOOD 0 09/30/2023 Active NEEDLE, DISP, 25 G (MONOJECT HYPO 25GX5/8 ) 25G X 5/8 MISC Use to inject pregnyl 0 09/06/2023 Active SYRINGE-NEEDLE, DISP, 3 ML (B-D 3CC LUER-TERESO SYR 56PJ4-6/2) 18G X 1-1/2 3 ML MISC Use [...] 97 12/20/2023 9:21 AM EDT Temperature 36.3 C (97.3 F) 12/20/2023 9:21 AM EDT Respiratory Rate - - Oxygen Saturation 95% [...] / Td (1 - Tdap) 01/27/2017 01/26/2017 Hemoglobin A1C Due 05/16/2024 11/14/2023 Diabetes: Microalbumin Test 11/13/2024 11/14/2023 Preventative Health Evaluation 12/19/2024 12/20/2023 Influenza Vaccine (#1) 2025 03/15/2017 RSV Ped < 20 months Aged Out No longe r eligible based on patient's age to complete this topic Care Teams Clerk Television Production Relationship Specialty Start Date End Date Cory Renteria IV, PCP - General Internal Medicine 11/01/23
[2024-12-02 13:30] LABS: Hematocrit 53.7 % (42.0-52.0); Hemoglobin 18.2 g/dl (14.0-18.0); Mean Corpuscular HGB Conc 33.9 g/dl (31.0-36.0); Mean Corpuscular Hemoglobin 29.7 pg (27.0-33.0); Mean Corpuscular Volume 87.7 fL (80.0-98.0); NRBC Abs Auto 0.000 X10*3/uL (0.0-0.012); NRBC Pct Auto 0.0 /100WBC (0.0-0.2); Platelet Count 268 X10*3/uL (160-400); Red Blood Count 6.12 X10*6/uL (4.60-5.80); White Blood Count 9.1 X10*3/uL (4.8-10.8)
[2024-12-02 14:07] LABS: Prostate Specific Antigen 0.73 ng/mL (<0.05-4.0)
== END 2024-12-02 11:50 | disposition home or self-care (01) ==
LOC: HO.10HDL 11:49
PROVIDERS: Visit Provider Urology
DX: Z12.5 Encounter for screening for malignant neoplasm of prostate (principal); E29.1 Testicular hypofunction
CPT/HCPCS: 36415; 84153; 84403; 85027

== ENCOUNTER 2024-12-17 08:53 | Outpatient (AMB) | payer BC, SELFPAY ==
--- NOTE | 2024-12-17 08:55 | MHC.OFFVIS ---
Intake Visit Reasons: 6m/labs Intake Note: Patient is present for 6M F/U Urology Medication:TADALALFIL.TESTOSTERONE Antibiotic Allergy:NONE Blood Thinner:NONE labs done 12/02/24 : PSA 0.73, Total testosterone :542 Senior Nuclear Medicine Technologist Required: No Accompanied by: Self / Same As Patient Allergies No Known Allergies Allergy (Verified 12/17/24 08:56) HPI Comments Details: Kingsley is a pleasant male. He is a patient of Dr. Riddle. 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 Carter at [facility] Erectile difficulty Response to 20 mg tadalafil on demand Prescription provided [facility] Medical History Shift work sleep disorder Social History Housing: House Patient Tobacco Use Status: Never used Tobacco e-Cigarette/Vaping Use: Never Used Second Hand Smoke Exposure: No service: No Current occupational status: employed Current occupation: [employer] Current occupational exposures/hazards: Yes Cognitive needs: No Hearing needs: No Vision needs: No Review of Systems Const All systems reviewed & are unremarkable except as noted in HPI and below Reports no additional complaints Resp Reports no additional complaints GI Reports no additional complaints Reports as per HPI Musc Reports no additional complaints Physical Exam Telemedicine evaluation Appropriate responses Regular breathing rate and rhythm HEENT Head: Yes normal to inspection Ears: hearing grossly normal bilaterally Eyes General: appearance normal, both eyes and all related structures Neck Neck: Yes normal visual inspection Chest Chest palpation & inspection: normal inspection of the chest Resp Effort & Inspection: normal respiratory effort and able to speak in complete sentences Telehealth Telehealth Telehealth Platform: Sorbent Green Location of provider rendering services: practice address Location of patient: address on file Patient Identification confirmed using: Name, : Yes Telehealth method: video Patient verbally consented to treatment: Yes Patient verbally consented to billing insurance company: Yes Patient informed of any privacy concerns related to visit: Yes Assessment & Plan Assessment & Plan (1) Bladder instability: Code(s): N32.89 - Other specified disorders of bladder Category: Medical (2) Erectile dysfunction: Code(s): N52.9 - Male erectile dysfunction, unspecified Category: Medical Qualifiers: Erectile dysfunction type: vasculogenic Plan Six-month follow-up lab work office Orders: Orders Testosterone, Total 6 Months E29.1 - Testicular hypofunction Prostate Specific Antigen 6 Months E29.1 - Testicular hypofunction Blood Urea Nitrogen 6 Months E29.1 - Testicular hypofunction Medications: Refilled tadalafil On demand medication take 60 minutes before intended activity 20 mg PO ONCE PRN 30 tabs 0RF sexual activity 30 days E11.69 - Type 2 diabetes mellitus with other specified complication, N52.1 - Erectile dysfunction due to diseases classified elsewhere testosterone cypionate (Depo-Testosterone) Discard excess - may spilt dose 25 units twice a week 100 mg (0.5 mL) subcut QWEEK 4 mL 5RF 4 weeks E29.1 - Testicular hypofunction, [id number] tadalafil Wasserman payment 5 mg PO DAILY 90 tabs 1RF Bladder instability 90 days N32.89 - Other specified disorders of bladder Patient Instructions: This note is constructed using voice recognition software. While every effort has been made to ensure accuracy restaurant team member errors may have been included. Imaging studies, laboratory and physical exam results were discussed and reviewed in detail. No major barriers to patient understanding were identified. An opportunity to ask questions regarding the treatment plan was provided. All questions were answered. The patient expressed understanding and agreement with the above treatment plan. The patient is aware they should contact our office by phone for worsening of their current condition or the appearance of new urologic symptoms. Compliance is encouraged with any medications and followup testing that is ordered. It is a privilege to participate in the urologic care of your patient. If you have any questions or concerns regarding treatment for the above conditions, or other urologic issues, please do not hesitate to contact me. The office telephone contact is [phone]. Sincerely, Dr Umesh Yu MD, [facility] - Urology Compassionate Specialist Care for the Genitourinary System Coding Level of Care Code Tele Est Pt Level 3 (53309) Complex EM visit Add On G2211 Diagnoses Bladder instability N32.89 Erectile dysfunction N52.9 Erectile dysfunction type: vasculogenic
--- OUTSIDE RECORDS SUMMARY | 2024-12-17 09:15 | XMS_ITS | Clinical Summary ---
Author Organization [facility] Address [address] [place] [address] Care Team Providers Care Consumer Product Advisor Name Role Phone Myra ROCA DO, Edward J Primary Care Provider Unavailable Allergies No known active allergies Medications Medication Sig Dispensed Refills Start Date End Date Status chorionic gonadotropin (PREGNYL) 63380 units injection 2,000 Units. 0 09/06/2023 Active lisinopril (PRINIVIL,ZESTRIL) tablet 10 mg 0 10/25/2023 Active metFORMIN (GLUCOPHAGE-XR) ER 24 hr tablet 500 mg TAKE 1 TABLET BY MOUTH TWICE A DAY WITH FOOD 0 09/30/2023 Active NEEDLE, DISP, 25 G (MONOJECT HYPO 25GX5/8 ) 25G X 5/8 MISC Use to inject pregnyl 0 09/06/2023 Active SYRINGE-NEEDLE, DISP, 3 ML (B-D 3CC LUER-TERESO SYR 45HR4-5/2) 18G X 1-1/2 3 ML MISC Use [...] age to complete this topic Care Teams Consumer Product Advisor Relationship Specialty Start Date End Date Cory Renteria IV, PCP - General Internal Medicine 11/01/23
--- OUTSIDE RECORDS SUMMARY | 2024-12-17 09:15 | XMS_ITS | Clinical Summary ---
Author Organization [facility] Address [address] [place] [phone] Phone Care Team Providers Care Commercial Green Retrofit Architect Name Role Phone Cory Renteria DO Primary Care Provider Allergies No known active allergies Medications albuterol HFA (PROAIR HFA ; PROVENTIL HFA ; VENTOLIN HFA) 90 mcg/actuation inhaler Inhale 2 puffs by mouth every 6 hours as needed. Active chorionic gonadotropin (PREGNYL) 10,000 unit injection 2,000 Units. 09/06/19 24 Active lisinopriL (PRINIVIL,ZESTRI L) 10 mg tablet Take 1 tablet (10 mg total) by mouth 1 (one) time each day. Active metFORMIN XR (GLUCOPHAGE-XR) 500 mg 24 hr tablet Take 1 tablet (500 mg total) by mouth 2 (two) times a day. Active methylPREDNISolo ne (MEDROL) 4 mg tablet follow package directions 02/13/20 24 Active needle, disp, 25 gauge 25 gauge x 5/8 needle Use to inject pregnyl 09/06/19 24 Active syringe with needle 3 mL 18 x 1 1/2 syringe Use to draw up pregnyl 09/06/19 24 Active testosterone cypionate (DEPO-TESTOTERON E) 200 mg/mL injection INJECT 0.5 ML SUBCUTANEOUSLY EVERY WEEK. DISCARD EXCESS Active tirzepatide (MOUNJARO) 15 mg/0.5 mL injectionIndicat ions:Non-insulin dependent type 2 diabetes mellitus (CMS/HCC V24, CMS/HCC V28) Inject 0.5 mL (15 mg total) under the skin every 7 (seven) days. 2 mL 3 10/11/19 25 Active propranoloL (INDERAL) 20 mg tabletIndication s:Essential hypertension TAKE 1 TABLET (20 MG TOTAL) BY MOUTH ONCE DAILY 90 tablet 11/02/19 25 Active hydroCHLOROthiaz karla (HYDRODIURIL) 25 mg tabletIndication s:Essential hypertension TAKE 1 TABLET BY MOUTH EVERY DAY 90 tablet 11/13/19 25 Active modafiniL (PROVIGIL) 200 mg tabletIndication s:Shift work sleep disorder Take 1 tablet (200 mg total) by mouth 1 (one) time each day. Max Daily Amount: 200 mg 30 tablet 12/04/19 25 Active modafiniL (PROVIGIL) 200 mg tabletIndication s:Shift work sleep disorder Take 1 tablet (200 mg total) by mouth 1 (one) time each day. 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 Hypertriglyceridemia 03/13/2023 Microalbuminuric diabetic ne phropathy ([facility] V24, [facility] V28) 03/07/2023 Hyperglycemia due to type 2 diabetes mellitus ([facility] V24, [facility] V28) 03/07/2023 Type 2 diabetes mellitus wit hout complication ([facility] V24, [facility] V28) 02/27/2023 Morbid obesity ([facility] V24, [facility] V28) 2022 Male infertility 02/27/2023 Essential hypertension 02/27/2023 Hiatal hernia 02/27/2023 Erectile dysfunction 02/27/2023 Asthma 02/27/2023 Hypogonadism in male 02/27/2023 Encounters Date Type Department Care Team Description 10/10/2024 12:30 PM EDT Telemedicine Internal Medicine - [address] [place] [phone] David Fuller DO Non-insulin dependent type 2 diabetes mellitus ([facility] V24, [facility] V28) (Primary Dx) from Last 3 Months [...] Medical History Date Comments Asthma DX:Asthma Diabetes ([facility] V24, [facility] V28) DX:Diabetes (HCC) Hypertension DX:Hypertension Obesity DX:Obesity Vision problem DX:Vision [...] 12/08/2023 Hepatitis C Screening 12/08/2023 COVID-19 Vaccine (1 - 2023-2 5 season) 2024 Diabetes: Blood [...] EST Non-insulin dependent type 2 diabetes mellitus ([facility] V24, [facility] V28) BASIC METABOLIC PANEL Routine 06/19/2024 8:29 AM EST Non-insulin dependent type 2 diabetes mellitus ([facility] V24, CMS/[facility] V28) HEMOGLOBIN A1C Routine 06/19/2024 8:29 AM EST Non-insulin dependent type 2 diabetes mellitus ([facility] V24, CMS/[facility] V28) LIPID PANEL Routine 06/19/2024 8:29 AM EST Non-insulin dependent type 2 diabetes mellitus ([facility] V24, CMS/[facility] V28) from Last 3 Months or Most Recently Relevant to Health Maintenance Results * Microalbumin creatinine urine ratio (06/19/2024 8:29 AM EST) Creatinine, Urine 158.5 mg/dL LAB CHEMISTRY METHOD 06/19/2024 12:14 PM EST [facility] Comment:No established refer ence range. Microalb, Ur <7.0 mg/L LAB CHEMISTRY METHOD 06/19/2024 12:14 PM EST [facility] Comment:No established refer ence range. Microalb/Creat Ratio <4 <30 mg/g creat LAB CHEMISTRY METHOD 06/19/2024 12:14 PM EST [facility] Comment:Concentrations outsi de detection limits, unable to calculate ratio. Urine Urine specimen obtained by clean catch procedure / Unknown Non-blood Collection / Unknown 06/19/2024 8:29 AM EST 06/19/2024 8:29 AM EST Cory Renteria DO LAB URINE ORDERABLES Fi nal Result [facility] [address] [place] [address], [place] [phone] * (ABNORMAL) Hemoglobin A1c (06/19/2024 8:29 AM EST) Hemoglobin A1C 6.7(H) <5.7 % LAB CHEMISTRY METHOD 06/19/2024 10:48 AM EST [facility] Mean Bld Glu Estim. 146 mg/dL LAB CHEMISTRY METHOD 06/19/2024 10:48 AM EST [facility] Blood Venous blood specimen / Unknown Venipuncture / Unknown 06/19/2024 8:29 AM EST 06/19/2024 8:29 AM EST Narrative [facility] - 06/19/2024 10:48 AM EST ADA Guidelines: Increased risk Diabetes Mellitus A1C 5.7 - 6.4% and Fasting Blood Glucose 100 - 125 mg/dl Diabetes Mellitus: A1C >6.5% and Fasting Blood Glucose >125 mg/dl Cory Renteria DO LAB BLOOD ORDERABLES Fi nal Result [facility] [address] [place] [address], [place] [phone] * (ABNORMAL) Lipid panel (06/19/2024 8:29 AM EST) Cholesterol 183 0 - 200 mg/dL LAB CHEMISTRY METHOD 06/19/2024 10:51 AM EST [facility] Triglycerides 233(H) <150 mg/dL LAB CHEMISTRY METHOD 06/19/2024 10:51 AM EST [facility] HDL 42 32 - 70 mg/dL LAB CHEMISTRY METHOD 06/19/2024 10:51 AM EST [facility] LDL Calculated 94 50 - 130 mg/dL LAB CHEMISTRY METHOD 06/19/2024 10:51 AM EST [facility] VLDL Cholesterol Marquez 46.6 mg/dL LAB CHEMISTRY METHOD 06/19/2024 10:51 AM EST [facility] Comment:No established refer ence range. Blood Venous blood specimen / Unknown Venipuncture / Unknown 06/19/2024 8:29 AM EST 06/19/2024 8:29 AM EST Cory Renteria DO LAB BLOOD ORDERABLES Fi nal Result [facility] [address] [place] [address], * (ABNORMAL) Basic metabolic panel (06/19/2024 8:29 AM EST) Pathologist [facility] Sodium 138 135 - 145 mmol/L LAB CHEMISTRY METHOD 06/19/2024 10:51 AM EST [facility] Potassium 4.0 3.5 - 5.1 mmol/L LAB CHEMISTRY METHOD 06/19/2024 10:51 AM [facility] Chloride 98 98 - 107 mmol/L LAB CHEMISTRY METHOD 06/19/2024 10:51 AM EST [facility] CO2 31 24 - 32 mmol/L LAB CHEMISTRY METHOD 06/19/2024 10:51 AM [facility] Anion Gap 9 5 - 14 LAB CHEMISTRY METHOD 06/19/2024 10:[address] [facility] Glucose 138(H) 70 - 99 mg/dL LAB CHEMISTRY METHOD 06/19/2024 10:51 AM EST [facility] BUN 17 9 - 20 mg/dL LAB CHEMISTRY METHOD 06/19/2024 10:51 AM EST [facility] Creatinine 1.20 0.70 - 1.30 mg/dL LAB CHEMISTRY METHOD 06/19/2024 10:51 AM EST [facility] eGFR 78 >=60 mL/min/1. 73m2 LAB CHEMISTRY METHOD 06/19/2024 10:51 AM EST [facility] Comment:Calculation based on the Chronic Kidney Disease Epidemiology Collaboration (CKD-EPI) equation refit without adjustment for race. BUN/Creatinine Ratio 14.2 12.0 - 20.0 LAB CHEMISTRY METHOD 06/19/2024 10:51 AM EST [facility] Calcium 10.1 8.4 - 10.2 mg/dL LAB CHEMISTRY METHOD 06/19/2024 10:51 AM EST [facility] Blood Venous blood specimen / Unknown Venipuncture / Unknown 06/19/2024 8:29 AM EST 06/19/2024 8:29 AM EST Cory Renteria DO LAB BLOOD ORDERABLES Fi nal Result [facility] [address] [place] [address], from Last 3 Months or Most Recently Relevant to Health Maintenance Insurance [facility]) [place] [address] Care Teams Commercial Green Retrofit Architect Relationship Specialty Start Date End Date Cory Renteria DO [address] [place] [phone] PCP - General 11/01/23
--- OUTSIDE RECORDS SUMMARY | 2024-12-17 09:15 | XMS_ITS | Encounter Summary ---
Author Organization [facility] Address [address] [place] [address] Care Team Providers Care Geology Professor Name Role Phone Unavailable Primary Care Provider Unavailabl e Encounter Details Date Type Department Care Team (Late st Contact Info) Description 02/14/2020 Lab Requisition [facility] [address] [place] [phone] Cory Malcolm PA-C [address] [place] [phone] Encounter for laboratory testing for COVID-19 virus [...] DETECTED NOT DETECTED 02/16/2020 1:00 AM EDT [facility] Comment: A Not Detected (negative) [...] providers and patients using the following websites: https://[email or web address] Telegram/home/Covid-19/HCP/QuestLDTP/ fact-sheet https://www.Viableware/home/Covid-19/Patients/QuestLDTP/ fact-sheet.html This test has been authorized by the FDA under an Emergency Use Authorization (EUA) for use by authorized laboratories. Due to the current public health emergency, [facility] is receiving a high volume of samples [...] about COVID-19 can be found at the [facility] website: [email or web address].[email or web address] [email or web address]. Microbiology Nasopharyngeal swab / Unknown 02/14/2020 1:27 PM EDT 02/14/2020 1:27 PM EDT [facility] - 02/16/2020 1:00 AM EDT Performing Organization Information: Site ID: [id number] Name: [employer] [facility] Address: [address] [place] [address],[place] [address] Director: MIGUEL VANCE MD [facility] License number [id number] us Cory Malcolm PA-C BODY FLUIDS AND STOOLS OR DERABLES Final Result Performing Organization Address City/State/[facility] Co de Phone Number [facility] documented in this encounter Visit Diagnoses Diagnosis Encounter for laboratory testing for COVID-19 virus documented in this encounter
--- OUTSIDE RECORDS SUMMARY | 2024-12-17 09:15 | XMS_ITS | Patient Health Record ---
Author Organization [facility] Address [address] [facility] [place] [address] Care Team Providers Care Ticket Sales Agent Name Role Phone Bon Pineda Primary Care Provider Reason For Referral No Information Medications Medication [...] Treatment Pending Test Test Name Order Date [id number] 08/14/2014 Insurance Providers Payer Name Payer Address Payer Phone Subscriber Number Group Number Insured Name Patient Relationship to Insured Coverage Start Date Coverage End Date [facility] [address] [facility] VARSHA ryan [id number] [phone] [id number] Jonny Botello Self - patient is the insured Medical (General) History Medical History History ICD Code Chicken pox Surgical History Surgery Date(Month/Year) shoulder surgery, left
--- OUTSIDE RECORDS SUMMARY | 2024-12-17 09:15 | XMS_ITS | Clinical Summary ---
Author Organization [facility] Address [address] [place] [address] Care Team Providers Care Chemical Engineering Technician Name Role Phone Unavailable Primary Care Provider [...] patient's age to complete this topic Insurance [employer] EM[employer] NON-HEP
== END 2024-12-17 15:35 | disposition home or self-care (01) ==
LOC: HO.HUSH 08:53
PROVIDERS: Visit Provider Urology
DX: N32.89 Other specified disorders of bladder (principal); N52.9 Male erectile dysfunction, unspecified
CPT/HCPCS: 99213